=== PATIENT | male | born 1930 | race Caucasian/White ===

== ENCOUNTER 2022-05-25 20:02 | Inpatient (IN) | payer BC ==
[~2022-05-25] VITALS: Ht 170.2 cm; Wt 74.8 kg
--- NOTE | 2022-05-25 20:35 | NUR ---
seeing and examined by Dr. Carrizales
[2022-05-25] MEDS ORDERED: IV NORMAL SALINE 1000 ML BAG IV ONE (20:45)
[2022-05-25 20:54] LABS: HEMATOCRIT 40.9 % (36.7-47.1); MEAN CORPUSCULAR HEMOGLOBIN 26.2 uug (23.8-33.4); MEAN CORPUSCULAR VOLUME 81.5 fL (73.0-96.2); PLATELET COUNT (AUTO) 189 K/uL (152-348)
[2022-05-25 21:04] LABS: CARBON DIOXIDE 32 mmol/L (21-32); CHLORIDE 100 mmol/L (98-107); CREATININE 1.1 mg/dL (0.6-1.3); GLUCOSE 101 mg/dL (74-106); UREA NITROGEN, BLOOD 28 mg/dL (7-18)
--- NOTE | 2022-05-25 21:08 | NUR ---
u/a collectecd, sent to lab
[2022-05-25 21:09] LABS: MAGNESIUM 2.1 mg/dL (1.8-2.4)
--- NOTE | 2022-05-25 21:17 | NUR ---
EKG done, L AC 20g inserted
[2022-05-25 21:22] LABS: ALANINE AMINOTRANSFERASE 20 U/L (16-63); ALKALINE PHOSPHATASE 121 U/L (50-136); ASPARTATE AMINOTRANSFERASE 21 U/L (15-37); BILIRUBIN,DIRECT 0.1 mg/dL (0.0-0.2); BILIRUBIN,TOTAL 0.3 mg/dL (0.2-1.0); TOTAL PROTEIN, SERUM 6.4 g/dL (6.4-8.2)
[2022-05-25 21:50] LABS: *BILIRUBIN,URIN NEGATIVE (NEGATIVE); *BLOOD, URINE NEGATIVE (NEGATIVE); *CLARITY,URINE CLEAR (CLEAR); *COLOR,URINE YELLOW (YELLOW); *KETONES,URINE NEGATIVE (NEGATIVE); *UROBILINOGEN,URINE 0.2 E.U./dl (NORMAL); LEUKOCYTE ESTERASE ,URINE NEGATIVE (NEGATIVE); NITRITE, URINE NEGATIVE (NEGATIVE); UGLUCOSE NEGATIVE (NEGATIVE)
[2022-05-25] MEDS ORDERED: SWABABLE VALVE TRANSFER SET EA MC ONE (22:31)
[2022-05-25] MEDS ORDERED: IOHEXOL 350 100 ML INFUS..BTL ONE (22:31)
[2022-05-25] MEDS ORDERED: IV NORMAL SALINE 250 ML IV ONE (22:31)
[2022-05-25] MEDS ORDERED: VANCOMYCIN IV 1,000 MG in IV DEXTROSE 5% 250 ML IV ONE (23:45)
[2022-05-25] MEDS ORDERED: PIPERACILLIN SODIUM/TAZOBACTAM 4.5 G in IV DEXTROSE 5% 50 ML IV SCH (23:45)
[2022-05-25] MEDS ORDERED: LINA145C PO (23:59)
[2022-05-25] MEDS ORDERED: LOSA100T31 PO (23:59)
[2022-05-25] MEDS ORDERED: TIOT4MIS3 IH (23:59)
[2022-05-25] MEDS ORDERED: LANS30CA56 PO (23:59)
[2022-05-25] MEDS ORDERED: DEXA4TAB PO (23:59)
[2022-05-25] MEDS ORDERED: LEVE500T9 PO (23:59)
[2022-05-25] MEDS ORDERED: SIMV-49 PO (23:59)
[2022-05-26] MEDS ORDERED: VANCOMYCIN IV 200 ML ONE (00:10)
[2022-05-26] MEDS ORDERED: PIPERACILLIN/TAZO 4.5 GM VIAL IV ONE (00:10)
--- NOTE | 2022-05-26 01:44 | NUR ---
covid swab collected and sent to lab
[2022-05-26] MEDS ORDERED: ONDANSETRON 4 MG/2 ML VIAL IV PRN (01:45)
[2022-05-26] MEDS ORDERED: REMEDY ESSENTIAL ZINC PASTE 113 GM TP PRN (01:45)
[2022-05-26] MEDS ORDERED: DOSING BY PHARMACY-MD TO SPECIFY MED/ROUTE XX PRN (01:45)
--- NOTE | 2022-05-26 05:11 | NUR ---
Jud sun in [facility] - 05/26/22 at 0607 by ALTAGRACIA Called [facility] [place] spoke to [place], patient was assigned bed 141b.
--- NOTE | 2022-05-26 07:50 | NUR ---
Recieved pt in resting w/ both eyes closed, NAD noted remaines on o2 at 5L via N/C.
[2022-05-26] MEDS ORDERED: PANTOPRAZOLE SODIUM 40 MG TABLET.DR PO ONE (07:58)
[2022-05-26] MEDS: PANTOPRAZOLE SODIUM 40 MG TABLET.DR PO SCH ×2 (08:00→09:54)
--- NOTE | 2022-05-26 08:40 | NUR ---
Transfer pt via gurney to room 314.
--- NOTE | 2022-05-26 08:50 | NUR ---
PT RECEIVED IN ROOM 14, QI BED VIA [facility] AWAKE AND IS ON O2 5L/MINN NC. NO SOB. PT WALK FROM [facility]. GAIT IS UNSTEADY. PT ASSISTED BY ER NURSE AND THIS NURSE. PT TOLERATES ACTIVITY. PASTRY CHEF PLACED. VS NOTEDF IS WNL. AFEBRILE. PLEASE SEEE NURSES FLOE RECORD FOR V/S. LAC #[address] pT IS CONTINENT OF BLADDER. NO BM NOTED AT THIS TIME. kIN BRUISED THE RIGHT LEG AND R KNEE ARE. AND SCAB TO RIGHT ELBOW. REDNESS TO SACRUM. PT ORIENTED TO ROOM AND USE OF TV AND PHONE IN ROOM. PT VERBALIZES UNDERSTANDING.
[2022-05-26 09:05] VITALS: BP 138/66
[2022-05-26 09:05] LABS: HEMATOCRIT 39.9 % (36.7-47.1); MEAN CORPUSCULAR HEMOGLOBIN 25.8 uug (23.8-33.4); MEAN CORPUSCULAR VOLUME 81.4 fL (73.0-96.2); PLATELET COUNT (AUTO) 166 K/uL (152-348)
[2022-05-26 09:20] LABS: BILIRUBIN,TOTAL 0.4 mg/dL (0.2-1.0); CREATININE 1.1 mg/dL (0.6-1.3); MAGNESIUM 2.2 mg/dL (1.8-2.4); POTASSIUM 4.1 mmol/L (3.5-5.1); TOTAL PROTEIN, SERUM 6.4 g/dL (6.4-8.2)
[2022-05-26] MEDS: PIPERACILLIN SODIUM/TAZOBACTAM 3.375 G in IV DEXTROSE 5% 50 ML IV SCH ×3 (09:54→21:05)
[2022-05-26] MEDS: IV NS 1000 ML 1,000 ML IV PRN (09:56)
[2022-05-26 11:26] VITALS: BP 123/52
[2022-05-26 14:57] VITALS: BP 105/41
[2022-05-26] MEDS: levETIRAcetam 500 MG TABLET PO SCH ×2 (16:24→22:12)
[2022-05-26] MEDS: DEXAMETHASONE 4 MG TABLET PO SCH (16:25)
--- NOTE | 2022-05-26 18:36 | NUR ---
SEEN BY RESOURCE FORESTER. NPT OCCASION COUGHING IS PRDUCTIVE PT HAS PHLEM. SAFETY MAINTAINED. CALL LIGHT IS INREACH AND VERBALIZES UNDERXTANDING NOT TOGET OUT OF BED WITHOUT ASSISTANCE, SIDE RAILS UP X2, PRE PROTOCOL BED ALARM IN PLACE.
[2022-05-26 20:00] VITALS: BP 120/59
[2022-05-26] MEDS: SIMVASTATIN 40 MG TABLET PO SCH (21:12)
[2022-05-26] MEDS: ACETAMINOPHEN 325 MG TABLET PO PRN (21:13)
[2022-05-26] MEDS: VANCOMYCIN IV 1,000 MG in IV DEXTROSE 5% 250 ML IV SCH (21:59)
[2022-05-27] VITALS: BP 127/59
[2022-05-27] MEDS: PIPERACILLIN SODIUM/TAZOBACTAM 3.375 G in IV DEXTROSE 5% 50 ML IV SCH ×4 (02:50→21:58)
[2022-05-27 04:00] VITALS: BP 148/64
[2022-05-27 08:26] LABS: MEAN CORPUSCULAR HEMOGLOBIN 26.4 uug (23.8-33.4); MEAN CORPUSCULAR VOLUME 81.2 fL (73.0-96.2); PLATELET COUNT (AUTO) 210 K/uL (152-348)
[2022-05-27 08:37] LABS: MAGNESIUM 2.1 mg/dL (1.8-2.4); PHOSPHOROUS 3.3 mg/dL (2.5-4.9); POTASSIUM 3.9 mmol/L (3.5-5.1)
[2022-05-27 08:49] LABS: THYROID STIMULATING HORMONE 1.234 mIU/mL (0.358-3.740)
[2022-05-27] MEDS ORDERED: Linaclotide (Linzess) 145 MCG) PO SCH (09:00)
[2022-05-27] MEDS ORDERED: Medication Not On Formulary EA (Losartan Potassium 100 MG) PO SCH (09:00)
[2022-05-27 09:23] LABS: ABG BASE EXCESS 3.1 mmol/L; ABG HCO3 26.4 mmol/L; ABG PCO2 36.2 mmHg (35.0-45.0); ABG PH 7.481 (7.350-7.450); ABG PO2 61.6 mmHg (75.0-100.0); ABG SITE RIGHT RADIAL; ABG TOTAL HEMOGLOBIN 13.4 G/dL (13.5-18.0); COHb 1.4 % (0.5-1.5); MetHb 0.3 % (0.0-1.5); O2Hb 90.3 % (94.0-97.0); VENT MODE Nasal Cannula
[2022-05-27] MEDS: LOSARTAN POTASSIUM 50 MG TABLET PO SCH (10:02)
[2022-05-27] MEDS: levETIRAcetam 500 MG TABLET PO SCH ×2 (10:02→21:58)
[2022-05-27] MEDS: DEXAMETHASONE 4 MG TABLET PO SCH ×2 (10:02→16:11)
[2022-05-27 12:00] VITALS: BP 117/63
[2022-05-27] MEDS ORDERED: LORAZEPAM 2 MG/1 ML VIAL IV PRN (12:30)
--- NOTE | 2022-05-27 13:40 | NUR ---
TRANSPORTED TO [facility] FOR MRI OF THE BRAIN
[2022-05-27 16:00] VITALS: BP 134/77
[2022-05-27] MEDS: VANCOMYCIN IV 1,000 MG in IV DEXTROSE 5% 250 ML IV SCH (17:59)
[2022-05-27 20:00] VITALS: BP 127/74
[2022-05-27] MEDS: SIMVASTATIN 40 MG TABLET PO SCH (21:58)
[2022-05-28] VITALS: BP 125/68
[2022-05-28 04:00] VITALS: BP 133/76
[2022-05-28] MEDS: PANTOPRAZOLE SODIUM 40 MG TABLET.DR PO SCH (06:22)
[2022-05-28 06:44] LABS: HEMATOCRIT 36.3 % (36.7-47.1); MEAN CORPUSCULAR HEMOGLOBIN 26.1 uug (23.8-33.4); MEAN CORPUSCULAR VOLUME 80.4 fL (73.0-96.2); PLATELET COUNT (AUTO) 212 K/uL (152-348)
[2022-05-28 07:31] LABS: BILIRUBIN,TOTAL 0.4 mg/dL (0.2-1.0); CREATININE 0.8 mg/dL (0.6-1.3); MAGNESIUM 2.1 mg/dL (1.8-2.4); POTASSIUM 3.7 mmol/L (3.5-5.1)
[2022-05-28] MEDS: levETIRAcetam 500 MG TABLET PO SCH ×2 (08:21→20:40)
[2022-05-28] MEDS: DEXAMETHASONE 4 MG TABLET PO SCH ×2 (08:21→16:17)
[2022-05-28] MEDS: LOSARTAN POTASSIUM 50 MG TABLET PO SCH (08:21)
[2022-05-28 12:00] VITALS: BP 132/63
--- NOTE | 2022-05-28 15:56 | NUR ---
Pt. noted to be stable through out the shift. Able to make the need known. No acute distress noted. Call light within reach. bowel soft and non tender. No c/o pain. No acute distress noted. will keep monitoring the pt.
[2022-05-28 16:00] VITALS: BP 121/67
[2022-05-28] MEDS: MAGNESIUM HYDROXIDE 30 ML LIQUID UDC PO PRN (18:20)
--- NOTE | 2022-05-28 19:35 | NUR ---
Received patient laying in bed comfortably. AAOx4. No signs of distress or c/o pain at this time. On 2L NC, titrate as needed for comfort. Is SR on tele monitor, HR 83. Left FA IV site is intact and patent. IV fluids running adequately, NS@75cc/hr. Safety and comfort measures enforced.
[2022-05-28 20:00] VITALS: BP 123/62
[2022-05-28] MEDS: SIMVASTATIN 20 MG TABLET PO SCH (20:40)
[2022-05-29] VITALS: BP 128/71
[2022-05-29] MEDS: IV NS 1000 ML 1,000 ML IV PRN (03:10)
[2022-05-29 04:00] VITALS: BP 149/75
[2022-05-29] MEDS: PANTOPRAZOLE SODIUM 40 MG TABLET.DR PO SCH (06:06)
[2022-05-29] MEDS: MAGNESIUM HYDROXIDE 30 ML LIQUID UDC PO PRN (06:06)
--- NOTE | 2022-05-29 06:47 | NUR ---
Pateint slept intermittently throughout the night. Medical records release form consent was signed and to be sent to Dr. Carlos Barr. Patient is aware of situation. Complained of not being able to have a bowel movement. Abdomen was non-tender, soft, hyperactive. Milk of Mag was administered. IVF running adequately. Is in no signs of distress. Is now on 3L NC. Is SR on tele monitor, HR 85. Safety and comfort measures maintained.
[2022-05-29 08:06] LABS: *IMMUNOGLOBULIN G, SERUM 676 mg/dL (603-1613); IMMUNOGLOBULIN M, SERUM 40 mg/dL (15-143)
[2022-05-29 08:11] LABS: CREATININE 0.8 mg/dL (0.6-1.3); POTASSIUM 4.1 mmol/L (3.5-5.1)
[2022-05-29] MEDS: LOSARTAN POTASSIUM 50 MG TABLET PO SCH (08:15)
[2022-05-29] MEDS: DEXAMETHASONE 4 MG TABLET PO SCH ×2 (08:15→16:30)
[2022-05-29] MEDS: levETIRAcetam 500 MG TABLET PO SCH ×2 (08:15→20:46)
[2022-05-29 08:43] LABS: HEMATOCRIT 36.8 % (36.7-47.1); MEAN CORPUSCULAR VOLUME 80.5 fL (73.0-96.2); PLATELET COUNT (AUTO) 209 K/uL (152-348)
[2022-05-29 11:36] VITALS: BP 121/64
[2022-05-29 13:04] LABS: BAND % (MANUAL) 2 % (0-10); LYMPHOCYTES % (MANUAL) 4 % (20-40); MONOCYTES % (MANUAL) 2 % (2-10); NEUTROPHILS % (MANUAL) 92 % (42-75)
[2022-05-29] MEDS ORDERED: FERROUS SULFATE 325 MG TABEC PO SCH (14:00)
[2022-05-29 16:48] VITALS: BP 119/67
[2022-05-29 20:00] VITALS: BP 142/59
[2022-05-29] MEDS: SIMVASTATIN 20 MG TABLET PO SCH (20:46)
[2022-05-30] VITALS: BP 151/69
[2022-05-30 04:00] VITALS: BP 143/66
--- NOTE | 2022-05-30 05:32 | NUR ---
Patient is SR on tele monitor, HR 92.
[2022-05-30] MEDS: PANTOPRAZOLE SODIUM 40 MG TABLET.DR PO SCH (06:28)
--- NOTE | 2022-05-30 06:50 | NUR ---
Patient slept intermittently throughout the night. Completed new linen change and hygiene. Patient stated " I feel a lot better." No signs of distress or c/o pain. Is on 3L NC. BMx1 throughout shift. Safety and comfort measures maintained.
[2022-05-30 07:54] LABS: HEMATOCRIT 37.4 % (36.7-47.1); MEAN CORPUSCULAR HEMOGLOBIN 26.5 uug (23.8-33.4); MEAN CORPUSCULAR VOLUME 80.3 fL (73.0-96.2); PLATELET COUNT (AUTO) 229 K/uL (152-348)
[2022-05-30 08:05] LABS: CREATININE 0.9 mg/dL (0.6-1.3); POTASSIUM 4.3 mmol/L (3.5-5.1)
[2022-05-30] MEDS: DEXAMETHASONE 4 MG TABLET PO SCH ×2 (08:08→16:11)
[2022-05-30] MEDS: LOSARTAN POTASSIUM 50 MG TABLET PO SCH (08:08)
[2022-05-30] MEDS: levETIRAcetam 500 MG TABLET PO SCH ×2 (08:08→20:03)
[2022-05-30] MEDS: FERROUS SULFATE 325 MG TABEC PO SCH (08:18)
[2022-05-30] MEDS ORDERED: GADOTERATE MEGLUMINE 10 MMOL/20 ML VIAL IV ONE (08:51)
[2022-05-30 11:32] VITALS: BP 129/42
[2022-05-30 16:06] LABS: A/G RATIO 0.8 (0.7-1.7); ALBUMIN 2.2 g/dL (2.9-4.4); ALPHA-1-GLOBULIN 0.4 g/dL (0.0-0.4); ALPHA-2-GLOBULIN 0.8 g/dL (0.4-1.0); GAMMA GLOBULIN 0.6 g/dL (0.4-1.8); GLOBULIN, TOTAL 2.8 g/dL (2.2-3.9); M-SPIKE Not Observed g/dL (Not Observed)
[2022-05-30 16:34] VITALS: BP 108/57
[2022-05-30 19:48] VITALS: BP 106/57
[2022-05-30] MEDS: SIMVASTATIN 20 MG TABLET PO SCH (20:03)
[2022-05-31 05:02] VITALS: BP 145/69
[2022-05-31] MEDS: PANTOPRAZOLE SODIUM 40 MG TABLET.DR PO SCH (06:03)
[2022-05-31 07:45] LABS: HEMATOCRIT 41.7 % (36.7-47.1); MEAN CORPUSCULAR VOLUME 80.4 fL (73.0-96.2); PLATELET COUNT (AUTO) 224 K/uL (152-348)
[2022-05-31 08:33] LABS: BILIRUBIN,TOTAL 0.4 mg/dL (0.2-1.0); CREATININE 0.9 mg/dL (0.6-1.3); MAGNESIUM 2.3 mg/dL (1.8-2.4); PHOSPHOROUS 3.3 mg/dL (2.5-4.9); POTASSIUM 4.4 mmol/L (3.5-5.1); TOTAL PROTEIN, SERUM 6.8 g/dL (6.4-8.2)
--- NOTE | 2022-05-31 09:00 | NUR ---
PT COMPLAIN OF SOB; SATURATION IN THE 80-85; SWITCHED 4L/MIN NC TO FACE MASK 9L/MIN. MD AWARE. NO NEW ORDERS.
[2022-05-31] MEDS: DEXAMETHASONE 4 MG TABLET PO SCH ×2 (09:15→18:21)
[2022-05-31] MEDS: FERROUS SULFATE 325 MG TABEC PO SCH (09:15)
[2022-05-31] MEDS: levETIRAcetam 500 MG TABLET PO SCH ×2 (09:16→23:07)
[2022-05-31] MEDS: LOSARTAN POTASSIUM 50 MG TABLET PO SCH (09:16)
[2022-05-31] MEDS: ALBUTEROL SULFATE 2.5 MG/3 ML NEBU NEB PRN (09:44)
[2022-05-31 11:47] VITALS: BP 112/53
--- NOTE | 2022-05-31 13:43 | NUR ---
pt calm and relax on bed sleeping. switch face mask to nc 4l/min. pt saturation 97%.
[2022-05-31] MEDS: ENSURE ENLIVE (VAN) 240 ML LIQUID PO SCH (14:00)
[2022-05-31 15:54] VITALS: BP 91/52
--- NOTE | 2022-05-31 18:23 | NUR ---
pt was discharge. pt is hemodynamically stable. no acute distress noted. pt is ambulatory. mariscal cath was inserted w/ a leg bag prior dc for urine retention per md. educate pt with catheter care and bag draining, pt verbalized understanding. pt will go home with spouse via private car. all belonging accounted for. iv access removed. Addendum: 05/31/22 at 1829 by GEOFF BURT RN wrong patient
[2022-05-31 20:57] VITALS: BP 91/51
[2022-05-31] MEDS: SIMVASTATIN 20 MG TABLET PO SCH (23:07)
[2022-06-01] MEDS: ACETAMINOPHEN 325 MG TABLET PO PRN ×2 (00:20→20:09)
[2022-06-01 00:26] VITALS: BP 100/54
[2022-06-01] MEDS: LORAZEPAM 2 MG/1 ML VIAL IV PRN ×2 (02:22→20:09)
[2022-06-01 05:10] VITALS: BP 109/66
[2022-06-01 06:57] LABS: HEMATOCRIT 38.8 % (36.7-47.1); MEAN CORPUSCULAR VOLUME 80.2 fL (73.0-96.2); PLATELET COUNT (AUTO) 195 K/uL (152-348)
[2022-06-01] MEDS: PANTOPRAZOLE SODIUM 40 MG TABLET.DR PO SCH (07:01)
[2022-06-01 07:13] LABS: CREATININE 0.9 mg/dL (0.6-1.3); POTASSIUM 4.3 mmol/L (3.5-5.1)
[2022-06-01] MEDS: LOSARTAN POTASSIUM 50 MG TABLET PO SCH (09:42)
[2022-06-01] MEDS: levETIRAcetam 500 MG TABLET PO SCH ×2 (09:42→20:08)
[2022-06-01] MEDS: FERROUS SULFATE 325 MG TABEC PO SCH (09:42)
[2022-06-01] MEDS: DEXAMETHASONE 4 MG TABLET PO SCH ×2 (09:42→18:39)
[2022-06-01] MEDS: ENSURE ENLIVE (VAN) 240 ML LIQUID PO SCH (09:43)
[2022-06-01 12:00] VITALS: BP 137/82
[2022-06-01 16:10] VITALS: BP 116/65
[2022-06-01 20:00] VITALS: BP 129/76
[2022-06-01] MEDS: SIMVASTATIN 20 MG TABLET PO SCH (20:09)
--- NOTE | 2022-06-01 23:27 | NUR ---
Patient has been a little bit agitated at the beginning of the shift. Antianxiety medication have been administered. Patient is now resting in his bed, no sign of respiratory distress observed. Patient took all of his medications. Report have been giving to the nurse who is going to take care of the patient while I am leaving the premise. Patient is now stable 02 is at normal range.
[2022-06-02 04:00] VITALS: BP 118/78
[2022-06-02] MEDS: PANTOPRAZOLE SODIUM 40 MG TABLET.DR PO SCH (06:21)
[2022-06-02] MEDS: DEXAMETHASONE 4 MG TABLET PO SCH ×2 (08:29→17:58)
[2022-06-02] MEDS: levETIRAcetam 500 MG TABLET PO SCH ×2 (08:29→21:00)
[2022-06-02] MEDS: LOSARTAN POTASSIUM 50 MG TABLET PO SCH (08:29)
[2022-06-02] MEDS: FERROUS SULFATE 325 MG TABEC PO SCH (08:29)
[2022-06-02] MEDS: ENSURE ENLIVE (VAN) 240 ML LIQUID PO SCH (08:30)
[2022-06-02 11:30] VITALS: BP 90/46
--- NOTE | 2022-06-02 11:33 | NUR ---
pt still in the unit. per CM there no placment for him yet. made aware..
--- NOTE | 2022-06-02 11:34 | NUR ---
pt is more alert today. pt ate 80% of his bfast. still dessating without O2. pt is on 10L simple face mask.
[2022-06-02 15:46] VITALS: BP 115/59
--- NOTE | 2022-06-02 18:40 | NUR ---
SHIFT NOTE. PT IS MORE ALERT TODAY. TOLERATED ENSURE. STILL DESAT WHEN OFF O2. PT IS ON 10L FACE MASK SATURATING AT 94-95. AFEBRILE. NO COMPLAIN OF PAIN. Q2H REPOSITION DONE. ON CONTINUOUS PULSE OX MONITOR. PT IS ABLE TO SIT ON BED BUT SATURATION DROP PER PT. MD IS AWARE. CALL LIGHT IN REACH. SAFETY MEASURE MAINTAINED. F/U WITH CM FOR DC PLAN. WILL ENDORSED TO NOC SHIFT.
[2022-06-02 20:00] VITALS: BP 102/57
[2022-06-02] MEDS: SIMVASTATIN 20 MG TABLET PO SCH (21:00)
[2022-06-02] MEDS: LORAZEPAM 2 MG/1 ML VIAL IV PRN (23:15)
[2022-06-03 00:30] VITALS: BP 106/68
--- NOTE | 2022-06-03 00:30 | NUR ---
PATIENT ASLEEP IN BED. CONTINUED WITH SIMPLE MASK ON 10L NC SATING 93-95%. NO RESP. DISTRESS NOTED.
[2022-06-03 03:32] LABS: *OCCULT BLOOD STOOL NEGATIVE (NEGATIVE)
[2022-06-03] MEDS: PANTOPRAZOLE SODIUM 40 MG TABLET.DR PO SCH (06:02)
[2022-06-03 07:18] LABS: HEMATOCRIT 39.1 % (36.7-47.1); MEAN CORPUSCULAR HEMOGLOBIN 25.8 uug (23.8-33.4); MEAN CORPUSCULAR VOLUME 81.4 fL (73.0-96.2); PLATELET COUNT (AUTO) 160 K/uL (152-348)
[2022-06-03 07:41] LABS: CREATININE 1.2 mg/dL (0.6-1.3); MAGNESIUM 2.6 mg/dL (1.8-2.4); PHOSPHOROUS 3.7 mg/dL (2.5-4.9); POTASSIUM 4.5 mmol/L (3.5-5.1)
[2022-06-03] MEDS: ENSURE ENLIVE (VAN) 240 ML LIQUID PO SCH (09:00)
[2022-06-03] MEDS: LOSARTAN POTASSIUM 50 MG TABLET PO SCH (09:00)
[2022-06-03] MEDS: FERROUS SULFATE 325 MG TABEC PO SCH (10:13)
[2022-06-03] MEDS: levETIRAcetam 500 MG TABLET PO SCH ×2 (10:13→21:08)
[2022-06-03] MEDS: DEXAMETHASONE 4 MG TABLET PO SCH ×2 (10:13→17:54)
--- NOTE | 2022-06-03 10:15 | NUR ---
Blood pressure reading is 107/37 cozaar 100mg held for low blood pressure.
[2022-06-03 11:48] VITALS: BP 94/47
[2022-06-03 15:52] VITALS: BP 117/49
[2022-06-03 16:06] LABS: BETA-2 MICROGLOBULIN, SERUM 3.5 mg/L (0.6-2.4)
[2022-06-03 20:56] VITALS: BP 112/57
[2022-06-03] MEDS: LORAZEPAM 2 MG/1 ML VIAL IV PRN (21:08)
[2022-06-03] MEDS: SIMVASTATIN 20 MG TABLET PO SCH (21:08)
--- NOTE | 2022-06-04 00:35 | NUR ---
Patient is confused and agitated, trying to remove O2. Bilateral soft wrist restraint applied. Slept intermittently. Vital signs WNL.
[2022-06-04 00:42] VITALS: BP 133/69
[2022-06-04] MEDS: LORAZEPAM 2 MG/1 ML VIAL IV PRN (03:08)
[2022-06-04 04:55] VITALS: BP 128/63
[2022-06-04] MEDS: PANTOPRAZOLE SODIUM 40 MG TABLET.DR PO SCH (06:46)
[2022-06-04 07:31] LABS: HEMATOCRIT 39.7 % (36.7-47.1); MEAN CORPUSCULAR HEMOGLOBIN 26.1 uug (23.8-33.4); MEAN CORPUSCULAR VOLUME 81.2 fL (73.0-96.2); PLATELET COUNT (AUTO) 147 K/uL (152-348)
[2022-06-04 07:41] LABS: CREATININE 0.9 mg/dL (0.6-1.3); MAGNESIUM 2.4 mg/dL (1.8-2.4); PHOSPHOROUS 3.5 mg/dL (2.5-4.9); POTASSIUM 4.5 mmol/L (3.5-5.1)
[2022-06-04] MEDS: DEXAMETHASONE 4 MG TABLET PO SCH ×2 (09:23→16:34)
[2022-06-04] MEDS: FERROUS SULFATE 325 MG TABEC PO SCH (09:23)
[2022-06-04] MEDS: LOSARTAN POTASSIUM 50 MG TABLET PO SCH (09:23)
[2022-06-04] MEDS: levETIRAcetam 500 MG TABLET PO SCH ×2 (09:23→20:59)
[2022-06-04] MEDS: ENSURE ENLIVE (VAN) 240 ML LIQUID PO SCH ×2 (09:23→16:35)
[2022-06-04 11:25] VITALS: BP 150/66
[2022-06-04 15:44] VITALS: BP 110/59
[2022-06-04 20:09] VITALS: BP 101/59
[2022-06-04] MEDS: SIMVASTATIN 20 MG TABLET PO SCH (20:59)
[2022-06-05 00:26] VITALS: BP 106/53
[2022-06-05 04:43] VITALS: BP 110/61
[2022-06-05] MEDS: PANTOPRAZOLE SODIUM 40 MG TABLET.DR PO SCH (06:29)
[2022-06-05 07:12] LABS: HEMATOCRIT 40.3 % (36.7-47.1); MEAN CORPUSCULAR HEMOGLOBIN 26.1 uug (23.8-33.4); MEAN CORPUSCULAR VOLUME 81.5 fL (73.0-96.2); PLATELET COUNT (AUTO) 155 K/uL (152-348)
[2022-06-05 07:42] LABS: CREATININE 0.8 mg/dL (0.6-1.3); MAGNESIUM 2.6 mg/dL (1.8-2.4); PHOSPHOROUS 3.3 mg/dL (2.5-4.9); POTASSIUM 4.8 mmol/L (3.5-5.1)
[2022-06-05 08:28] VITALS: BP 128/64
[2022-06-05] MEDS: DEXAMETHASONE 4 MG TABLET PO SCH ×2 (08:46→16:47)
[2022-06-05] MEDS: levETIRAcetam 500 MG TABLET PO SCH ×2 (08:47→20:55)
[2022-06-05] MEDS: FERROUS SULFATE 325 MG TABEC PO SCH (08:47)
[2022-06-05] MEDS: LOSARTAN POTASSIUM 50 MG TABLET PO SCH (08:47)
[2022-06-05] MEDS: ENSURE ENLIVE (VAN) 240 ML LIQUID PO SCH ×2 (08:48→16:47)
[2022-06-05] MEDS: IV D5/ 0.9% NACL 1,000 ML IV PRN (11:00)
[2022-06-05 11:32] VITALS: BP 105/54
[2022-06-05] MEDS ORDERED: IV NORMAL SALINE 250 ML IV ONE (12:22)
[2022-06-05] MEDS ORDERED: IOHEXOL 300MG/ML 100 ML INFUS..BTL ONE (12:22)
[2022-06-05] MEDS ORDERED: SWABABLE VALVE TRANSFER SET EA MC ONE (12:22)
[2022-06-05 15:18] VITALS: BP 122/74
--- NOTE | 2022-06-05 18:33 | NUR ---
brittny note; pt still confused at time. still desatting when off O2; md is aware; tolerating drinking ensure; swallow eval order per dr. kay. restarint on in the after noon pt taking his face mask off; pt on 8L simple face mask saturating 95-97%; redness on sacrum noted; apply optiform for protection; still sinus tachy on tele. ct head done today md notified of result. f/u w/ cm for discharge plan.
[2022-06-05 20:00] VITALS: BP 101/50
[2022-06-05] MEDS: LORAZEPAM 2 MG/1 ML VIAL IV PRN ×2 (20:55)
[2022-06-05] MEDS: SIMVASTATIN 20 MG TABLET PO SCH (20:55)
[2022-06-05] MEDS: IPRATROPIUM BROMIDE 0.5 MG/2.5 ML NEBU NEB PRN (23:09)
[2022-06-05] MEDS: ALBUTEROL SULFATE 2.5 MG/3 ML NEBU NEB PRN (23:09)
[2022-06-06] VITALS: BP 108/54
[2022-06-06 04:00] VITALS: BP 107/48
[2022-06-06] MEDS: PANTOPRAZOLE SODIUM 40 MG TABLET.DR PO SCH (07:09)
--- NOTE | 2022-06-06 07:13 | NUR ---
SHIFT NOTE: RECEIVED PATIENT WITH FAMILY MEMBER AT BEDSIDE NO SIGNS OF DISTRESS NOTED. PT IS CONFUSED KEPT PULLING OFF OXYGEN AND WHEN MANAGER ELECTRONIC ATTEMPTING TO CHANGE PT PT PULLED OFF Addendum: 06/06/22 at 0747 by REGISTRY [facility] INPATIENT RN21 RN PT PULLED OFF MASK AND RT STARTED PT ON A NONREBREATHER MASK AND OXYGEN IS NOW 97 PERCENT. NURSE IS SITTING BY PATIENT ROOM. PT HAS BILATERAL WRIST RESTRAINTS WRISTS MASSAGE AND RESTRAINTS REAPPLIED TOLERATED WELL NO SIGNS OF REDNESS OR SKIN BREAKDOWN. WILL ENDORSE TO DAHLIA MARTINEZ.
[2022-06-06 08:26] LABS: HEMATOCRIT 38.5 % (36.7-47.1); MEAN CORPUSCULAR HEMOGLOBIN 25.8 uug (23.8-33.4); MEAN CORPUSCULAR VOLUME 81.5 fL (73.0-96.2); PLATELET COUNT (AUTO) 131 K/uL (152-348)
[2022-06-06] MEDS: DEXAMETHASONE 4 MG TABLET PO SCH ×2 (08:55→17:19)
[2022-06-06] MEDS: levETIRAcetam 500 MG TABLET PO SCH ×2 (08:55→21:13)
[2022-06-06] MEDS: FERROUS SULFATE 325 MG TABEC PO SCH (08:56)
[2022-06-06] MEDS: LOSARTAN POTASSIUM 50 MG TABLET PO SCH (08:56)
[2022-06-06] MEDS: ENSURE ENLIVE (VAN) 240 ML LIQUID PO SCH ×2 (08:56→17:19)
[2022-06-06 09:00] VITALS: BP 103/63
[2022-06-06 09:08] LABS: CREATININE 0.9 mg/dL (0.6-1.3); MAGNESIUM 2.4 mg/dL (1.8-2.4); PHOSPHOROUS 3.5 mg/dL (2.5-4.9); POTASSIUM 4.5 mmol/L (3.5-5.1)
[2022-06-06] MEDS: IV D5/ 0.9% NACL 1,000 ML IV PRN (10:00)
--- NOTE | 2022-06-06 10:32 | NUR ---
titrate pt O2 to 6L simple mask, pt saturating 97-98. pt realx and resting on bed. no agitation noted.
[2022-06-06 11:54] VITALS: BP 93/51
[2022-06-06 16:51] VITALS: BP 106/54
--- NOTE | 2022-06-06 17:39 | NUR ---
shift note; pt aox2-3 on bed rest. no acute distress noted. denies any pain. daughter veda spoke with 's. verbalized understanding of POC of her dad. Pt on 6L simple mask saturating 97-98 all day. still desatting when off o2. pt is on pureed diet per speech therapy. pt is on aspiration risk precaution. soft wrist restraint still in placed pt taking his oxygen off. IV hydration still running at 75cc/hr. applied optiform on sacrum for protection.oral care done. pt have sore in gums from wearing dentures. per CM pt is going to [facility] just waiting for AUTH. call light in bedside; safety measure in placed. will endorsed to noc shift.
[2022-06-06] MEDS: MAGNESIUM HYDROXIDE 30 ML LIQUID UDC PO PRN (18:16)
--- NOTE | 2022-06-06 19:30 | NUR ---
Received patient lying in bed. AAOx2-3. In no acute distress. On O2 at 6LPM via simple mask in place. O2 sat at 98%. On continuous pulse ox. NSR on tele with HR of 100/min. IV site on right hand intact and patent. Sami. wrist restraint in place. Circulation checked. Needs assessed and attended to. Safety measure initiated.
[2022-06-06 20:43] VITALS: BP_SYST 146; BP_SYST 98; BP_DIAS 52; BP_DIAS 83
[2022-06-06] MEDS: SIMVASTATIN 20 MG TABLET PO SCH (21:13)
[2022-06-07] MEDS: LORAZEPAM 2 MG/1 ML VIAL IV PRN (00:19)
[2022-06-07 00:28] VITALS: BP 129/62
[2022-06-07] MEDS: IV D5/ 0.9% NACL 1,000 ML IV PRN ×2 (01:22→22:16)
[2022-06-07 04:46] VITALS: BP 129/66
--- NOTE | 2022-06-07 05:52 | NUR ---
AAOx2-3 with some confusion. In no apparent distress. On O2 at 6LPM via simple mask in place. NSR on tele with HR of 82/min. IV site on right hand intact and patent. IVF infusing. Sami. wrist restraint in place. Circulation checked. Needs attended to and met. Safety measure maintained.
[2022-06-07] MEDS: PANTOPRAZOLE SODIUM 40 MG TABLET.DR PO SCH (06:10)
--- NOTE | 2022-06-07 08:00 | NUR ---
PT is in no acute distress. O2 @ 8 lit mask with continuous pulse ox sat of 95%. Checked pt's skin with wrist restraint no redness noted. Repositioned pt for comfort. Call light is within reach. aspiration precaution implemented. Call light is within reach.
[2022-06-07 08:18] LABS: HEMATOCRIT 37.4 % (36.7-47.1); MEAN CORPUSCULAR HEMOGLOBIN 26.1 uug (23.8-33.4); MEAN CORPUSCULAR VOLUME 81.2 fL (73.0-96.2); PLATELET COUNT (AUTO) 140 K/uL (152-348)
[2022-06-07 08:37] LABS: CREATININE 0.8 mg/dL (0.6-1.3); MAGNESIUM 2.5 mg/dL (1.8-2.4); PHOSPHOROUS 2.4 mg/dL (2.5-4.9); POTASSIUM 4.6 mmol/L (3.5-5.1)
[2022-06-07] MEDS: DEXAMETHASONE 4 MG TABLET PO SCH ×2 (09:05→16:40)
[2022-06-07] MEDS: LOSARTAN POTASSIUM 50 MG TABLET PO SCH (09:06)
[2022-06-07] MEDS: ENSURE ENLIVE (VAN) 240 ML LIQUID PO SCH ×2 (09:06→17:02)
[2022-06-07] MEDS: levETIRAcetam 500 MG TABLET PO SCH ×2 (09:06→20:25)
[2022-06-07] MEDS: FERROUS SULFATE 325 MG TABEC PO SCH (09:06)
[2022-06-07] MEDS: MODAFINIL 100 MG TABLET PO SCH (09:06)
[2022-06-07 11:43] VITALS: BP 105/53
[2022-06-07 16:24] VITALS: BP 107/54
[2022-06-07] MEDS ORDERED: NEUTRA PHOS PACKET PO ONE (16:30)
--- NOTE | 2022-06-07 17:57 | NUR ---
Sacral redness Mepilex applied. Pt alert and oriented x 3. Aspiration precaution effective. Thickened liquids effective. Pt denies any c/o pain.
--- NOTE | 2022-06-07 20:00 | NUR ---
Received patient lying in bed. AAOx2-3. In no apparent distress. On O2 at 8LPM via simple mask in place. O2 sat at 96%. HOB kept elevated. NSR on tele with HR of 90/min. IV site on right hand intact and patent. Sami. wrist restraint in place. Safety measure initiated. Continue to monitor.
[2022-06-07] MEDS: MELATONIN 3 MG TABLET PO SCH (20:25)
[2022-06-07] MEDS: SIMVASTATIN 20 MG TABLET PO SCH (20:25)
[2022-06-07 20:40] VITALS: BP 122/60
[2022-06-08 00:32] VITALS: BP 124/63
[2022-06-08] MEDS: LORAZEPAM 2 MG/1 ML VIAL IV PRN (03:26)
[2022-06-08 04:50] VITALS: BP 120/66
[2022-06-08] MEDS: ALBUTEROL SULFATE 2.5 MG/3 ML NEBU NEB PRN (05:21)
[2022-06-08] MEDS: IPRATROPIUM BROMIDE 0.5 MG/2.5 ML NEBU NEB PRN (05:21)
--- NOTE | 2022-06-08 05:59 | NUR ---
On O2 at 8LPM via simple mask in place. Patient desaturate when mask is remove shortly. Still tries to remove mask in spite of having bilateral wrist restraint. Ativan 1mg via IV given for anxiety. Breathing TX given by RT PRN. Sinus tachy on tele with HR of 117/min. IV site on right hand intact and patent. IVF infusing. Needs attended to and met. Safety measure maintained.
[2022-06-08] MEDS: PANTOPRAZOLE SODIUM 40 MG TABLET.DR PO SCH (06:25)
[2022-06-08 07:22] LABS: HEMATOCRIT 40.5 % (36.7-47.1); MEAN CORPUSCULAR HEMOGLOBIN 25.6 uug (23.8-33.4); MEAN CORPUSCULAR VOLUME 82.3 fL (73.0-96.2); PLATELET COUNT (AUTO) 166 K/uL (152-348)
[2022-06-08 07:39] LABS: MAGNESIUM 2.3 mg/dL (1.8-2.4); POTASSIUM 4.1 mmol/L (3.5-5.1)
--- NOTE | 2022-06-08 08:00 | NUR ---
awake and restless, on 10l/mask but sat between 88%-90%, ST 120's, repositioned and kept head of bed elevated, oriented x 2, soft wrist restraints bilateral on, pt takes off 02 and pulls out IV if not on restraints, checked for circulation, aspiration and fall precautions implemented
[2022-06-08] MEDS: ENSURE ENLIVE (VAN) 240 ML LIQUID PO SCH ×2 (09:00→17:09)
[2022-06-08] MEDS: LOSARTAN POTASSIUM 50 MG TABLET PO SCH (09:00)
--- NOTE | 2022-06-08 09:00 | NUR ---
seen by Dr Clemente
[2022-06-08] MEDS: MODAFINIL 100 MG TABLET PO SCH (09:07)
[2022-06-08] MEDS: levETIRAcetam 250 MG TABLET PO SCH (09:07)
[2022-06-08] MEDS: DEXAMETHASONE 4 MG TABLET PO SCH ×2 (09:08→17:09)
[2022-06-08] MEDS: FERROUS SULFATE 325 MG TABEC PO SCH (09:08)
[2022-06-08 11:37] VITALS: BP 105/54
--- NOTE | 2022-06-08 12:00 | NUR ---
seen by hospitalist, pt relax at this time on 10l/nrb with sat of 94-95%, no distress noted,
[2022-06-08] MEDS: IV D5/ 0.9% NACL 1,000 ML IV PRN (12:05)
[2022-06-08 16:30] VITALS: BP 105/59
--- NOTE | 2022-06-08 18:36 | NUR ---
remains on 10L per NRB- sat 96%, no distress noted, repositioned q 2h with pillows for support-bilateral soft restrains on, good circulation noted, fed with meals and aspiration precautions observed, all needs attended and met.
[2022-06-08 20:00] VITALS: BP 129/67
[2022-06-08] MEDS: levETIRAcetam 500 MG TABLET PO SCH (20:45)
[2022-06-08] MEDS: QUETIAPINE FUMARATE 25 MG TABLET PO PRN (20:45)
[2022-06-08] MEDS: MELATONIN 3 MG TABLET PO SCH (20:45)
[2022-06-08] MEDS: SIMVASTATIN 20 MG TABLET PO SCH (20:45)
[2022-06-09] VITALS: BP 138/79
[2022-06-09] MEDS: IV D5/ 0.9% NACL 1,000 ML IV PRN ×2 (02:22→15:33)
[2022-06-09] MEDS: LORAZEPAM 2 MG/1 ML VIAL IV PRN (02:47)
[2022-06-09 04:00] VITALS: BP 134/66
[2022-06-09] MEDS: PANTOPRAZOLE SODIUM 40 MG TABLET.DR PO SCH (06:13)
[2022-06-09 07:11] LABS: HEMATOCRIT 36.1 % (36.7-47.1); MEAN CORPUSCULAR HEMOGLOBIN 25.8 uug (23.8-33.4); MEAN CORPUSCULAR VOLUME 81.4 fL (73.0-96.2); PLATELET COUNT (AUTO) 121 K/uL (152-348)
[2022-06-09 07:26] LABS: CREATININE 0.9 mg/dL (0.6-1.3); MAGNESIUM 2.2 mg/dL (1.8-2.4); PHOSPHOROUS 3.3 mg/dL (2.5-4.9); POTASSIUM 3.8 mmol/L (3.5-5.1)
--- NOTE | 2022-06-09 07:48 | NUR ---
Sleeping, appears comfortable. Trach to vent AC 12, TV 500, FIO2 30%, PEEP 5; with O2 sat 95%. Tele SR 66. GT feedings off. Addendum: 06/09/22 at 0755 by VALENCIA COELLO RN Notes not for this patient
--- NOTE | 2022-06-09 07:56 | NUR ---
Sleeping, calm. O2 per NRB at 14L with O2 sat of 94%. Tele SR with PVC. IVF infusing. Bilateral soft wrist restraints on, will monitor per protocol. Bed alarm on
--- NOTE | 2022-06-09 09:00 | NUR ---
Noted desaturation to 88% when eating. NRB Titrated to 15L at this time
[2022-06-09] MEDS: DEXAMETHASONE 4 MG TABLET PO SCH ×2 (09:04→17:42)
[2022-06-09] MEDS: LOSARTAN POTASSIUM 50 MG TABLET PO SCH (09:04)
[2022-06-09] MEDS: FERROUS SULFATE 325 MG TABEC PO SCH (09:04)
[2022-06-09] MEDS: levETIRAcetam 250 MG TABLET PO SCH (09:04)
[2022-06-09] MEDS: QUETIAPINE FUMARATE 25 MG TABLET PO PRN (09:04)
[2022-06-09] MEDS: ENSURE ENLIVE (VAN) 240 ML LIQUID PO SCH ×2 (09:05→17:42)
--- NOTE | 2022-06-09 11:00 | NUR ---
Noted 100& O2 sat with NRB 15L titrated to 12L with O2 sat of 95%, maintained
[2022-06-09 11:02] VITALS: BP 104/60
--- NOTE | 2022-06-09 12:30 | NUR ---
Assisted with meal, able to eat 50 % of meal with aspiration precaution.
--- NOTE | 2022-06-09 14:00 | NUR ---
O2 per NRB titrated to 10L with O2 sat of 95%, will continue to monitor
[2022-06-09 15:21] VITALS: BP 100/49
--- NOTE | 2022-06-09 17:16 | NUR ---
Incontinence care done. Repositioned comfortably. O2 per NRB titrated to 8L, will continue to monitor
--- NOTE | 2022-06-09 18:27 | NUR ---
Lethargic but easily aroused, open eyes when instructed. Assisted with meal, able to eat 50% of meal served with aspiration precaution. O2 per NRB will try to titrate to 8L and monitor
[2022-06-09 20:00] VITALS: BP 153/60
[2022-06-09] MEDS: SIMVASTATIN 20 MG TABLET PO SCH (21:01)
[2022-06-09] MEDS: levETIRAcetam 500 MG TABLET PO SCH (21:01)
[2022-06-09] MEDS: MELATONIN 3 MG TABLET PO SCH (21:02)
--- NOTE | 2022-06-09 21:30 | NUR ---
Received patient lying in bed. Pt is confused. On soft alessandro. wrist restraints. Continues monitoring per protocol. On non rebreather mask at 13L sating at 93-94%. Labored breathing. IV Site on L UA midline intact and patent. Sinus tachy on tele with HR of 101/min. All PO medications crushed given with apple sauce. No aspiration noted. All needs attended. Safety measure initiated and call light within reached.
[2022-06-10] VITALS: BP 133/79
[2022-06-10] MEDS: LORAZEPAM 2 MG/1 ML VIAL IV PRN (02:50)
[2022-06-10 04:00] VITALS: BP 138/64
[2022-06-10] MEDS: PANTOPRAZOLE SODIUM 40 MG TABLET.DR PO SCH (06:16)
--- NOTE | 2022-06-10 06:27 | NUR ---
Pt agitated, kept on removing Nonbreather mask. Pt desats to 70s without it. Ativan given as ordered. Monitored saturation closely. Pulled out midline. IV site on R hand intact and patent. Noted non pitting edema on right arm. Elevated extremity as needed. Soft Sami wrist restraints maintained. Offered fluids every hour. Skin checks done per protocol. Repositioned comfortably. All needs attended. Safety measures maintained.
[2022-06-10 06:38] LABS: HEMATOCRIT 38.1 % (36.7-47.1); MEAN CORPUSCULAR HEMOGLOBIN 26.2 uug (23.8-33.4); MEAN CORPUSCULAR VOLUME 82.1 fL (73.0-96.2); PLATELET COUNT (AUTO) 140 K/uL (152-348)
[2022-06-10] MEDS: IV D5/ 0.9% NACL 1,000 ML IV PRN (07:15)
[2022-06-10 07:32] LABS: CREATININE 0.9 mg/dL (0.6-1.3); MAGNESIUM 2.2 mg/dL (1.8-2.4); PHOSPHOROUS 2.7 mg/dL (2.5-4.9); POTASSIUM 3.6 mmol/L (3.5-5.1)
--- NOTE | 2022-06-10 09:00 | NUR ---
GOING TO ARU FOR PT. NO C/O DISCOMFORT.
[2022-06-10] MEDS: FERROUS SULFATE 325 MG TABEC PO SCH (09:07)
[2022-06-10] MEDS: levETIRAcetam 250 MG TABLET PO SCH (09:08)
[2022-06-10] MEDS: DEXAMETHASONE 4 MG TABLET PO SCH ×2 (09:08→17:07)
[2022-06-10] MEDS: ENSURE ENLIVE (VAN) 240 ML LIQUID PO SCH ×2 (09:08→17:07)
[2022-06-10] MEDS: LOSARTAN POTASSIUM 50 MG TABLET PO SCH (09:26)
[2022-06-10 11:28] VITALS: BP 115/42
--- NOTE | 2022-06-10 12:00 | NUR ---
DRESSING CHANGED TO BUTTOCKS. INSTRUCTED GOING HOME TODAY. VERBALIZED UNDERSTANDING. VERY FORGETFUL.
--- NOTE | 2022-06-10 13:00 | NUR ---
Spoke with Rosalio Duarte NP re pt's swollen Left arm. Ordered Duplex to r/o DVT.
[2022-06-10 15:06] VITALS: BP 112/47
--- NOTE | 2022-06-10 16:00 | NUR ---
PREPARED FOR DISCHARGE. INC. STOOL WITH LINEN CHANGE. DRESSING CHANGED TO BUTTOCKS. UPSET THAT PATIENT LEAVING SO LATE. INSTRUCTED THAT MD JUST DISCHARGED PATIENT, AND SENT MEDS TO PHARMACY ELECTRONICALLY.
--- NOTE | 2022-06-10 16:45 | NUR ---
DISCHARGED VIA [facility] TO [facility]BULANCE ATTEND[facility]S. DENIES PAIN OR DISCOMFORT.
[2022-06-10 20:00] VITALS: BP 116/65
[2022-06-10] MEDS: levETIRAcetam 500 MG TABLET PO SCH ×2 (21:00→21:12)
[2022-06-10] MEDS: SIMVASTATIN 20 MG TABLET PO SCH (21:13)
[2022-06-10] MEDS: MELATONIN 3 MG TABLET PO SCH (21:13)
[2022-06-10] MEDS ORDERED: levETIRAcetam 500 MG/5 ML LIQUID UDC PO SCH (21:30)
[2022-06-11] VITALS (11 sets, daily range): BP systolic 101–155; BP diastolic 41–66
[2022-06-11] MEDS: IV D5/ 0.9% NACL 1,000 ML IV PRN ×2 (00:39→16:34)
[2022-06-11] MEDS: IPRATROPIUM BROMIDE 0.5 MG/2.5 ML NEBU NEB PRN (03:03)
[2022-06-11] MEDS: LORAZEPAM 2 MG/1 ML VIAL IV PRN ×2 (03:03→13:28)
[2022-06-11] MEDS: ALBUTEROL SULFATE 2.5 MG/3 ML NEBU NEB PRN (03:05)
[2022-06-11] MEDS: PANTOPRAZOLE SODIUM 40 MG TABLET.DR PO SCH (06:03)
--- NOTE | 2022-06-11 06:32 | NUR ---
PATIENT AWAKE IN BED. CONTINUED ON NON-REBREATHER 15L SATING 97%. PATIENT VERY RESTLESS THROUGHOUT THE NIGHT. VSS. AFEBRILE. BED ALARM ON. BED ALARM ON, WILL CONTINUE TO MONITOR AND ASSESS.
[2022-06-11 07:01] LABS: HEMATOCRIT 41.1 % (36.7-47.1); MEAN CORPUSCULAR HEMOGLOBIN 25.9 uug (23.8-33.4); MEAN CORPUSCULAR VOLUME 83.7 fL (73.0-96.2); PLATELET COUNT (AUTO) 138 K/uL (152-348)
[2022-06-11 07:28] LABS: MAGNESIUM 2.3 mg/dL (1.8-2.4); PHOSPHOROUS 3.5 mg/dL (2.5-4.9); POTASSIUM 4.2 mmol/L (3.5-5.1)
--- NOTE | 2022-06-11 07:45 | NUR ---
RECEIVED PATENT VERY RESTLESS ON NRM AT 15 L, REMOVED ON AND OFF IN SPITE OF RESTRAINTS. DR CHU IN AND ORDERED STAT ABG.
--- NOTE | 2022-06-11 08:00 | NUR ---
RESULTS OF ABG NOTED BY DR CHU WITH ORDER TO START PATIENT ON A HI FLOW THEN TRANSFER TO ICU. OVEN DUMPER NOTIFIED AND ICU STAFF
[2022-06-11 08:56] LABS: ABG BASE EXCESS 0.9 mmol/L; ABG HCO3 24.3 mmol/L; ABG PCO2 34.7 mmHg (35.0-45.0); ABG PH 7.463 (7.350-7.450); ABG PO2 58.6 mmHg (75.0-100.0); ABG SITE RIGHT RADIAL; ABG TOTAL HEMOGLOBIN 12.9 G/dL (13.5-18.0); COHb 1.3 % (0.5-1.5); MetHb 0.3 % (0.0-1.5)
[2022-06-11] MEDS: levETIRAcetam 250 MG TABLET PO SCH (09:14)
[2022-06-11] MEDS: DEXAMETHASONE 4 MG TABLET PO SCH ×2 (09:14→16:59)
[2022-06-11] MEDS: LOSARTAN POTASSIUM 50 MG TABLET PO SCH (09:15)
[2022-06-11] MEDS: FERROUS SULFATE 325 MG TABEC PO SCH (09:15)
[2022-06-11] MEDS: ENSURE ENLIVE (VAN) 240 ML LIQUID PO SCH ×2 (09:19→17:18)
--- NOTE | 2022-06-11 09:45 | NUR ---
PATIENT TOLERATING HI FLOW AT 40%, SATURATING 96-97% REPORT GIVEN TO ICU FOR CONTINUITY OF CARE. SR/ST ON MONITOR
--- NOTE | 2022-06-11 12:00 | NUR ---
TRANSFERRED TO ICU FOR HIGHER LEVEL OF CARE PER DR CHU
--- NOTE | 2022-06-11 18:00 | NUR ---
Pt admited to ICU for abnormal ABG and on high flow oxygen on 40 LPM AND 100% FIO2 Sat 97% Pt confused pending transfer to [facility]. Pt remains confused most of the time and screaming for help after taking care of his needs he demands more help. Pr assisted to eat tolerates well intake. Family member daughter at bedside poor coping skills updated about Pt condition Pt remains on restraints to keep him safety in bed. Endorse care to incoming RN
[2022-06-11] MEDS: MELATONIN 3 MG TABLET PO SCH (21:00)
[2022-06-11] MEDS: SIMVASTATIN 20 MG TABLET PO SCH (21:29)
[2022-06-11] MEDS: levETIRAcetam 500 MG TABLET PO SCH (21:29)
[2022-06-12] VITALS (20 sets, daily range): BP systolic 103–158; BP diastolic 38–90
[2022-06-12] MEDS: LORAZEPAM 2 MG/1 ML VIAL IV PRN (01:56)
[2022-06-12] MEDS: IV D5/ 0.9% NACL 1,000 ML IV PRN (04:39)
[2022-06-12] MEDS: PANTOPRAZOLE SODIUM 40 MG TABLET.DR PO SCH (05:20)
[2022-06-12] MEDS: ENSURE ENLIVE (VAN) 240 ML LIQUID PO SCH ×2 (08:01→17:00)
[2022-06-12 08:10] LABS: ABG BASE EXCESS 3.7 mmol/L; ABG HCO3 26.3 mmol/L; ABG PCO2 33.3 mmHg (35.0-45.0); ABG PH 7.516 (7.350-7.450); ABG PO2 60.4 mmHg (75.0-100.0); ABG SITE LEFT RADIAL; ABG TOTAL HEMOGLOBIN 12.2 G/dL (13.5-18.0); COHb 1.2 % (0.5-1.5); MetHb 0.3 % (0.0-1.5); VENT MODE HF - Aquinox
[2022-06-12] MEDS: LOSARTAN POTASSIUM 50 MG TABLET PO SCH (08:45)
[2022-06-12] MEDS: FERROUS SULFATE 325 MG TABEC PO SCH (08:45)
[2022-06-12] MEDS: levETIRAcetam 250 MG TABLET PO SCH (09:26)
[2022-06-12] MEDS: DEXAMETHASONE 4 MG TABLET PO SCH ×2 (09:27→17:00)
[2022-06-12 09:38] LABS: CREATININE 0.7 mg/dL (0.6-1.3); MAGNESIUM 2.1 mg/dL (1.8-2.4); PHOSPHOROUS 2.6 mg/dL (2.5-4.9); POTASSIUM 3.9 mmol/L (3.5-5.1)
[2022-06-12 09:39] LABS: HEMATOCRIT 35.7 % (36.7-47.1); MEAN CORPUSCULAR HEMOGLOBIN 26.3 uug (23.8-33.4); MEAN CORPUSCULAR VOLUME 82.8 fL (73.0-96.2); PLATELET COUNT (AUTO) 119 K/uL (152-348)
[2022-06-12] MEDS ORDERED: IV D5 1/2 NS 1000 ML 1,000 ML IV ONE (13:00)
--- NOTE | 2022-06-12 21:15 | NUR ---
Patient resting in bed requesting water, no s/s of any distress noted. Patient remains with IVF infusing as per order, o2 remains in use and Salgado remains intact. Moist cough noted, abd soft, non tender to palpation, RLE from knee down redness noted to top of foot, LLE slight redness noted with scattered scabbed areas to ankle and foot. Patient repositioned for comfort, bilateral wrist restraint released and reapplied side rails up with call light in reach. 132/[id number]%
[2022-06-12] MEDS: SIMVASTATIN 20 MG TABLET PO SCH (21:45)
[2022-06-12] MEDS: levETIRAcetam 500 MG TABLET PO SCH (21:46)
[2022-06-12] MEDS: MELATONIN 3 MG TABLET PO SCH (21:46)
--- NOTE | 2022-06-12 21:47 | NUR ---
Medicated as per order, BUE swelling and redness noted mid arm with drainage noted. will continue to monitor.
--- NOTE | 2022-06-12 23:48 | NUR ---
Patient remans awake, calling out, more calm when standing bedside. C/o being cold, given a blanket will stay at bedside.
[2022-06-13] VITALS (28 sets, daily range): BP systolic 67–146; BP diastolic 34–75
--- NOTE | 2022-06-13 01:20 | NUR ---
Patient remains awake, bed bath, linen change and oral care done at this time. Patient repositioned, restraints released. IV infiltrated, removed, 3 attempts made to establish a new line unable to do so at this time. Patient tying to sleep at this time, will try again in one hour. 142/81-976-28-95% on high flow. side rails remain up will monitor frequently.
--- NOTE | 2022-06-13 02:06 | NUR ---
Sitting at bedside with patient, requested HOB to be lowered, done at this time.
--- NOTE | 2022-06-13 03:30 | NUR ---
patient fell asleep for about 30 minutes, repositioned for comfort, restraints released and re-applied. No change in primary assessment. side rails remain up with frequent monitoring.
--- NOTE | 2022-06-13 05:12 | NUR ---
Patient cleaned at this time and repositioned for comfort. #22g established in right wrist area, IVF infusing as per order, lab at bedside blood collected. BUE pads changed weeping blood tinged fluids. Salgado out-put was 800cc, 450 intake from IVF. 100cc P.O. patient is winding down and may fall asleep. 129/63-355-41-93% on high flow o2. side rails remain up with call light in reach.
[2022-06-13 05:16] LABS: HEMATOCRIT 30.7 % (36.7-47.1); MEAN CORPUSCULAR HEMOGLOBIN 26.3 uug (23.8-33.4); MEAN CORPUSCULAR VOLUME 84.7 fL (73.0-96.2); PLATELET COUNT (AUTO) 61 K/uL (152-348)
[2022-06-13 05:24] LABS: CREATININE 0.9 mg/dL (0.6-1.3); MAGNESIUM 1.4 mg/dL (1.8-2.4); PHOSPHOROUS 2.2 mg/dL (2.5-4.9)
[2022-06-13 05:34] LABS: POTASSIUM 2.7 mmol/L (3.5-5.1)
--- NOTE | 2022-06-13 05:47 | NUR ---
Reassessment of new IV site, no s/s of infiltration noted, will continue to monitor, Lab called with potassium level of 2.7 and glucose of 880, I ask them to re-draw the patient. Awaiting lab to return to unit.
--- NOTE | 2022-06-13 06:18 | NUR ---
Bedside accu-check done, resulted as 81, order placed for re-draw. Awating lab.
[2022-06-13] MEDS: QUETIAPINE FUMARATE 25 MG TABLET PO PRN ×2 (07:41→20:20)
[2022-06-13] MEDS: PANTOPRAZOLE SODIUM 40 MG TABLET.DR PO SCH (07:41)
[2022-06-13 08:56] LABS: ABG BASE EXCESS -0.5 mmol/L; ABG HCO3 21.8 mmol/L; ABG PCO2 28.9 mmHg (35.0-45.0); ABG PH 7.496 (7.350-7.450); ABG PO2 52.2 mmHg (75.0-100.0); ABG SITE RIGHT BRACHIAL; COHb 1.2 % (0.5-1.5); MetHb 0.3 % (0.0-1.5); O2Hb 88.1 % (94.0-97.0); VENT MODE HFNC
[2022-06-13] MEDS: ENSURE ENLIVE (VAN) 240 ML LIQUID PO SCH ×2 (09:00→17:00)
[2022-06-13] MEDS ORDERED: POTASSIUM CHLORIDE 20 MEQ TAB.PRT.SR PO ONE ×2 (09:30→12:30)
[2022-06-13] MEDS: POTASSIUM CHLORIDE 20 MEQ POWDER PACKET PO SCH ×2 (09:55→14:54)
[2022-06-13] MEDS: MAGNESIUM SULFATE/D5W 100 ML IV SCH ×4 (09:56→14:32)
[2022-06-13] MEDS: DEXAMETHASONE 4 MG TABLET PO SCH ×2 (09:57→17:09)
[2022-06-13] MEDS: FERROUS SULFATE 325 MG TABEC PO SCH (09:57)
[2022-06-13] MEDS: ACETAMINOPHEN 325 MG TABLET PO PRN (09:57)
[2022-06-13] MEDS: LOSARTAN POTASSIUM 50 MG TABLET PO SCH (09:58)
[2022-06-13] MEDS: levETIRAcetam 250 MG TABLET PO SCH (10:04)
[2022-06-13 11:09] LABS: BILIRUBIN,TOTAL 0.8 mg/dL (0.2-1.0); CREATININE 0.8 mg/dL (0.6-1.3); POTASSIUM 3.8 mmol/L (3.5-5.1); TOTAL PROTEIN, SERUM 5.6 g/dL (6.4-8.2)
[2022-06-13] MEDS ORDERED: IV NS 1000 ML 1,000 ML IV ONE (13:00)
[2022-06-13] MEDS ORDERED: NOREPINEPHRINE BITARTRATE 8 MG in IV NORMAL SALINE 242 ML IV PRN (13:00)
[2022-06-13] MEDS: IV D5 1/2 NS 1000 ML 1,000 ML IV PRN (15:04)
[2022-06-13] MEDS ORDERED: NEUTRA PHOS PACKET PO ONE (16:00)
[2022-06-13 17:21] LABS: *RHEUMATOID FACTOR SCREEN NEGATIVE (NEGATIVE)
[2022-06-13] MEDS: levETIRAcetam 500 MG TABLET PO SCH (20:18)
[2022-06-13] MEDS: MELATONIN 3 MG TABLET PO SCH (20:19)
[2022-06-13] MEDS: SIMVASTATIN 20 MG TABLET PO SCH (20:21)
--- NOTE | 2022-06-13 20:30 | NUR ---
Pt received hypotensive with SBP 84 am LAB RESULTS bun 1.0 Albumin 1.7 PLT 61 K 3.8. Observed bilateral arms third spacing call Dr Schmid for orders inform no NGT placed due to low PLTS count 61 and possible nose trauma due to pt mental status agitation and restlessness. order Albumen 25% 100 ml over two hours lot# [id number] exp 13 FEB 2025 50 MLx2. Pt tolerates well infusion SBP 132/62 MAP 89 continue monitoring condition.Pt remains on high flow oxygen 40 LPM FIO2 100% Pt at times mouth breather and oral care done to moistures gums. HOB kept above 30 degrees.
[2022-06-13] MEDS ORDERED: ALBUMIN HUMAN 25% 100 ML IV ONE (21:00)
[2022-06-14] VITALS (31 sets, daily range): BP systolic 83–146; BP diastolic 38–78
[2022-06-14] MEDS: IV D5 1/2 NS 1000 ML 1,000 ML IV PRN ×2 (03:37→16:49)
[2022-06-14 05:08] LABS: MEAN CORPUSCULAR HEMOGLOBIN 25.8 uug (23.8-33.4); MEAN CORPUSCULAR VOLUME 82.8 fL (73.0-96.2); PLATELET COUNT (AUTO) 54 K/uL (152-348)
[2022-06-14 05:18] LABS: CARBON DIOXIDE 28 mmol/L (21-32); CHLORIDE 115 mmol/L (98-107); CREATININE 0.8 mg/dL (0.6-1.3); GLUCOSE 183 mg/dL (74-106); MAGNESIUM 2.6 mg/dL (1.8-2.4); PHOSPHOROUS 3.6 mg/dL (2.5-4.9); POTASSIUM 4.2 mmol/L (3.5-5.1); UREA NITROGEN, BLOOD 26 mg/dL (7-18)
[2022-06-14] MEDS: IPRATROPIUM BROMIDE 0.5 MG/2.5 ML NEBU NEB PRN ×2 (06:04→11:50)
[2022-06-14] MEDS: ALBUTEROL SULFATE 2.5 MG/3 ML NEBU NEB PRN ×2 (06:04→11:50)
--- NOTE | 2022-06-14 06:07 | NUR ---
0555 Pt observed SOB SAT 84% ON HIGH FLOW+NRBM 100% Fio2 RT was called and Pt was placed on BIPAP with settings 15/5 BUR 16 fio2 100% Pt saturation improved to 95%. Pt resting comfortable afebrile, continue monitoring condition.
[2022-06-14] MEDS: PANTOPRAZOLE SODIUM 40 MG TABLET.DR PO SCH (07:00)
--- NOTE | 2022-06-14 07:15 | NUR ---
Received pt. on BIPAP15/5 Rate of 16 and 100% FIO2. saturation of 10%. Patient responsive to name calling. On sinus tachycardia rate in the low teens <than 120's. sbp within desired limits. mariscal with bloody output, TLC right femoral patent, blood cultures sent as ordered.
--- NOTE | 2022-06-14 07:28 | NUR ---
Patient placed on High flow 100% 40L. saturation drop to 86%. RR in the 28. Patient tolerating it poorly.
[2022-06-14] MEDS ORDERED: PIPERACILLIN SODIUM/TAZOBACTAM 3.375 G in IV DEXTROSE 5% 50 ML IV ONE (08:00)
[2022-06-14] MEDS: FERROUS SULFATE 325 MG TABEC PO SCH (08:11)
[2022-06-14] MEDS: ENSURE ENLIVE (VAN) 240 ML LIQUID PO SCH ×2 (08:11→16:49)
[2022-06-14] MEDS: SULFAMETH/TRIMETH 800/160 MG TABLET PO SCH (08:11)
[2022-06-14] MEDS: DEXAMETHASONE 4 MG TABLET PO SCH (08:11)
[2022-06-14] MEDS: levETIRAcetam 250 MG TABLET PO SCH (08:11)
[2022-06-14 09:04] LABS: ABG BASE EXCESS 1.6 mmol/L; ABG HCO3 26.1 mmol/L; ABG PCO2 40.8 mmHg (35.0-45.0); ABG PH 7.424 (7.350-7.450); ABG PO2 78.5 mmHg (75.0-100.0); ABG SITE LEFT RADIAL; ABG TOTAL HEMOGLOBIN 10.1 G/dL (13.5-18.0); COHb 0.9 % (0.5-1.5); MetHb 0.3 % (0.0-1.5); O2Hb 93.9 % (94.0-97.0); VENT MODE BIPAP
--- NOTE | 2022-06-14 10:42 | NUR ---
Pulmonary services, Dr. Clemente in the unit to see and examine pt. report given, orders to continue care plan.
[2022-06-14 11:07] LABS: *ANTI-SCLERODERMA-70 AB <0.2 AI (0.0-0.9); *SJOGREN'S ANTI-SS-A <0.2 AI (0.0-0.9); *SJOGREN'S ANTI-SS-B <0.2 AI (0.0-0.9); *SMITH ANTIBODIES <0.2 AI (0.0-0.9); ANTI-DNA(DS) AB, QN <1 IU/mL (0-9)
--- NOTE | 2022-06-14 11:21 | NUR ---
Attending Joao Wilcox in the unit to examine pt. report given see order hx.
[2022-06-14] MEDS: LORAZEPAM 2 MG/1 ML VIAL IV PRN (12:37)
[2022-06-14] MEDS ORDERED: levETIRAcetam IV 500 MG in IV DEXTROSE 5% 100 ML IV SCH (14:00)
[2022-06-14] MEDS: DEXAMETHASONE SOD PHOSPHATE 4 MG INJ IV SCH ×2 (14:07→21:27)
[2022-06-14] MEDS: PIPERACILLIN SODIUM/TAZOBACTAM 3.375 G in IV DEXTROSE 5% 100 ML IV SCH ×2 (15:59→23:09)
--- NOTE | 2022-06-14 17:15 | NUR ---
Pt has remained on bipap throughout shift, Fio2 at 100%. Protecta-gel applied under mask for skin integrity, skin intact, some redness noted. Nt/oral sxn prn. Tachypnea, mild distress, pt using accessory muscles. Hhn treatments given prn. Will continue to monitor and follow current respiratory orders.
[2022-06-14] MEDS: SIMVASTATIN 20 MG TABLET PO SCH (21:00)
[2022-06-14] MEDS: MELATONIN 3 MG TABLET PO SCH (21:00)
[2022-06-14] MEDS: levETIRAcetam IV 250 MG in IV DEXTROSE 5% 100 ML IV SCH (21:27)
[2022-06-15] VITALS (23 sets, daily range): BP systolic 117–241; BP diastolic 57–95
[2022-06-15 04:55] LABS: HEMATOCRIT 30.9 % (36.7-47.1); MEAN CORPUSCULAR HEMOGLOBIN 26.2 uug (23.8-33.4); MEAN CORPUSCULAR VOLUME 81.8 fL (73.0-96.2); PLATELET COUNT (AUTO) 64 K/uL (152-348)
[2022-06-15 05:11] LABS: CARBON DIOXIDE 29 mmol/L (21-32); CHLORIDE 110 mmol/L (98-107); CREATININE 0.9 mg/dL (0.6-1.3); GLUCOSE 155 mg/dL (74-106); MAGNESIUM 2.1 mg/dL (1.8-2.4); PHOSPHOROUS 3.3 mg/dL (2.5-4.9); POTASSIUM 4.2 mmol/L (3.5-5.1); UREA NITROGEN, BLOOD 21 mg/dL (7-18)
[2022-06-15 06:07] LABS: HEPATITIS B SURFACE AG Negative (Negative)
--- NOTE | 2022-06-15 07:17 | NUR ---
Left pt. slightly agitated on sinus tachycardia SBP within desired limits. mariscal to gravity. BIpap 18/5 rate of 16, and 100% FIO2. Will endorse for continuity of care.
[2022-06-15 07:32] LABS: ABG BASE EXCESS 1.3 mmol/L; ABG HCO3 24.7 mmol/L; ABG PCO2 34.5 mmHg (35.0-45.0); ABG PH 7.473 (7.350-7.450); ABG PO2 59.6 mmHg (75.0-100.0); ABG SITE LEFT BRACHIAL; ABG TOTAL HEMOGLOBIN 10.1 G/dL (13.5-18.0); COHb 0.9 % (0.5-1.5); MetHb 0.3 % (0.0-1.5); O2Hb 90.3 % (94.0-97.0); VENT MODE BIPAP
[2022-06-15] MEDS: FERROUS SULFATE 325 MG TABEC PO SCH (09:00)
[2022-06-15] MEDS: ENSURE ENLIVE (VAN) 240 ML LIQUID PO SCH ×2 (09:00→17:00)
[2022-06-15] MEDS: PIPERACILLIN SODIUM/TAZOBACTAM 3.375 G in IV DEXTROSE 5% 100 ML IV SCH ×4 (09:07→23:34)
[2022-06-15] MEDS: levETIRAcetam IV 250 MG in IV DEXTROSE 5% 100 ML IV SCH ×2 (09:07→20:55)
[2022-06-15] MEDS: DEXAMETHASONE SOD PHOSPHATE 4 MG INJ IV SCH ×2 (09:07→20:49)
[2022-06-15] MEDS: FAMOTIDINE. 20 MG/2 ML VIAL IV SCH (09:08)
[2022-06-15] MEDS: SULFAMETH/TRIMETH 800/160 MG TABLET PO SCH (09:08)
[2022-06-15] MEDS: SIMVASTATIN 20 MG TABLET PO SCH (20:49)
[2022-06-15] MEDS: MELATONIN 3 MG TABLET PO SCH (20:49)
[2022-06-16] VITALS (20 sets, daily range): BP systolic 95–161; BP diastolic 45–92
[2022-06-16] MEDS: IV D5 1/2 NS 1000 ML 1,000 ML IV PRN ×3 (04:21→23:14)
[2022-06-16 04:59] LABS: HEMATOCRIT 32.4 % (36.7-47.1); MEAN CORPUSCULAR HEMOGLOBIN 25.9 uug (23.8-33.4); MEAN CORPUSCULAR VOLUME 81.5 fL (73.0-96.2); PLATELET COUNT (AUTO) 51 K/uL (152-348)
[2022-06-16 05:14] LABS: ALANINE AMINOTRANSFERASE 17 U/L (16-63); ALKALINE PHOSPHATASE 172 U/L (50-136); ASPARTATE AMINOTRANSFERASE 21 U/L (15-37); BILIRUBIN,DIRECT 0.2 mg/dL (0.0-0.2); BILIRUBIN,TOTAL 0.8 mg/dL (0.2-1.0); CARBON DIOXIDE 28 mmol/L (21-32); CHLORIDE 107 mmol/L (98-107); CREATININE 0.8 mg/dL (0.6-1.3); GLUCOSE 134 mg/dL (74-106); PHOSPHOROUS 3.1 mg/dL (2.5-4.9); POTASSIUM 4.1 mmol/L (3.5-5.1); TOTAL PROTEIN, SERUM 5.5 g/dL (6.4-8.2); UREA NITROGEN, BLOOD 19 mg/dL (7-18)
[2022-06-16] MEDS: PIPERACILLIN SODIUM/TAZOBACTAM 3.375 G in IV DEXTROSE 5% 100 ML IV SCH ×2 (07:59→15:47)
[2022-06-16] MEDS: ENSURE ENLIVE (VAN) 240 ML LIQUID PO SCH ×2 (08:00→15:47)
[2022-06-16] MEDS: SULFAMETH/TRIMETH 800/160 MG TABLET PO SCH (08:01)
[2022-06-16] MEDS: FERROUS SULFATE 325 MG TABEC PO SCH (08:01)
[2022-06-16] MEDS: levETIRAcetam IV 250 MG in IV DEXTROSE 5% 100 ML IV SCH ×2 (08:02→20:53)
[2022-06-16] MEDS: FAMOTIDINE. 20 MG/2 ML VIAL IV SCH (08:06)
[2022-06-16] MEDS: DEXAMETHASONE SOD PHOSPHATE 4 MG INJ IV SCH ×2 (08:06→20:52)
[2022-06-16] MEDS ORDERED: TPN/PPN PER PHARMACY IV PRN (13:15)
[2022-06-16] MEDS ORDERED: DEXTROSE 50% 50 ML DISP.SYRIN IV PRN (15:00)
[2022-06-16] MEDS ORDERED: TPN BAG #1 IV SCH (16:00)
[2022-06-16] MEDS: BLOOD SUGAR DIAGNOSTIC 1 EACH STRIP VI SCH (18:19)
[2022-06-16] MEDS: MELATONIN 3 MG TABLET PO SCH (21:00)
[2022-06-16] MEDS: SIMVASTATIN 20 MG TABLET PO SCH (21:00)
[2022-06-17] VITALS (23 sets, daily range): BP systolic 123–151; BP diastolic 49–95
[2022-06-17] MEDS: PIPERACILLIN SODIUM/TAZOBACTAM 3.375 G in IV DEXTROSE 5% 100 ML IV SCH ×4 (00:22→23:19)
[2022-06-17 05:02] LABS: HEMATOCRIT 32.5 % (36.7-47.1); MEAN CORPUSCULAR HEMOGLOBIN 26.3 uug (23.8-33.4); MEAN CORPUSCULAR VOLUME 81.3 fL (73.0-96.2); PLATELET COUNT (AUTO) 65 K/uL (152-348)
[2022-06-17 05:39] LABS: CREATININE 0.8 mg/dL (0.6-1.3); MAGNESIUM 1.8 mg/dL (1.8-2.4); PHOSPHOROUS 2.6 mg/dL (2.5-4.9); POTASSIUM 3.8 mmol/L (3.5-5.1)
[2022-06-17] MEDS: BLOOD SUGAR DIAGNOSTIC 1 EACH STRIP VI SCH ×5 (06:02→23:57)
[2022-06-17 07:08] LABS: LYMPHOCYTES % (MANUAL) 4 % (20-40); MONOCYTES % (MANUAL) 1 % (2-10); NEUTROPHILS % (MANUAL) 95 % (42-75)
--- NOTE | 2022-06-17 07:21 | NUR ---
REPORT GIVEN TO TYLER COLLINS
[2022-06-17 07:56] LABS: ABG BASE EXCESS 1.4 mmol/L; ABG HCO3 25.4 mmol/L; ABG PCO2 37.9 mmHg (35.0-45.0); ABG PH 7.444 (7.350-7.450); ABG PO2 50.9 mmHg (75.0-100.0); ABG SITE LEFT BRACHIAL; COHb 1.2 % (0.5-1.5); MetHb 0.3 % (0.0-1.5); O2Hb 85.5 % (94.0-97.0); VENT MODE BIPAP
[2022-06-17] MEDS: ENSURE ENLIVE (VAN) 240 ML LIQUID PO SCH ×2 (09:00→16:34)
[2022-06-17] MEDS: SULFAMETH/TRIMETH 800/160 MG TABLET PO SCH (09:00)
[2022-06-17] MEDS: FERROUS SULFATE 325 MG TABEC PO SCH (09:00)
[2022-06-17] MEDS: FAMOTIDINE. 20 MG/2 ML VIAL IV SCH (09:40)
[2022-06-17] MEDS: DEXAMETHASONE SOD PHOSPHATE 4 MG INJ IV SCH ×2 (09:40→20:52)
[2022-06-17] MEDS: levETIRAcetam IV 250 MG in IV DEXTROSE 5% 100 ML IV SCH ×2 (09:40→20:52)
[2022-06-17] MEDS ORDERED: IV D5 1/2 NS 1000 ML 1,000 ML IV PRN (16:00)
[2022-06-17] MEDS ORDERED: TPN BAG #2 IV SCH ×3 (16:00)
[2022-06-17] MEDS: INSULIN REGULAR, HUMAN 300 UNIT/3 ML VIAL SQ PRN (17:49)
[2022-06-17] MEDS: SIMVASTATIN 20 MG TABLET PO SCH (21:00)
[2022-06-17] MEDS: MELATONIN 3 MG TABLET PO SCH (21:00)
[2022-06-18] VITALS (23 sets, daily range): BP systolic 130–158; BP diastolic 68–97
--- NOTE | 2022-06-18 | NUR ---
@2220 placed pt on new MD BIPAP setting. after [address] pt back on previous setting due to increase WOB and HR. Spo2 also decreased down to 86%. after pt on previous setting SPo2 increased to 90% and pt WOB showed improvement. will cont to monitor.
[2022-06-18 05:25] LABS: HEMATOCRIT 32.3 % (36.7-47.1); MEAN CORPUSCULAR HEMOGLOBIN 26.2 uug (23.8-33.4); MEAN CORPUSCULAR VOLUME 81.5 fL (73.0-96.2); PLATELET COUNT (AUTO) 78 K/uL (152-348)
[2022-06-18 05:27] LABS: CREATININE 0.8 mg/dL (0.6-1.3); MAGNESIUM 1.9 mg/dL (1.8-2.4); PHOSPHOROUS 2.3 mg/dL (2.5-4.9); POTASSIUM 3.7 mmol/L (3.5-5.1)
[2022-06-18] MEDS: BLOOD SUGAR DIAGNOSTIC 1 EACH STRIP VI SCH ×3 (06:04→18:04)
[2022-06-18 06:29] LABS: BAND % (MANUAL) 1 % (0-10); LYMPHOCYTES % (MANUAL) 1 % (20-40); MONOCYTES % (MANUAL) 1 % (2-10); NEUTROPHILS % (MANUAL) 97 % (42-75)
[2022-06-18] MEDS: PIPERACILLIN SODIUM/TAZOBACTAM 3.375 G in IV DEXTROSE 5% 100 ML IV SCH ×3 (07:48→23:11)
[2022-06-18 07:55] LABS: ABG BASE EXCESS 0.3 mmol/L; ABG HCO3 24.5 mmol/L; ABG PCO2 37.9 mmHg (35.0-45.0); ABG PH 7.428 (7.350-7.450); ABG PO2 56.8 mmHg (75.0-100.0); ABG SITE RIGHT RADIAL; ABG TOTAL HEMOGLOBIN 11.4 G/dL (13.5-18.0); COHb 1.1 % (0.5-1.5); MetHb 0.3 % (0.0-1.5); O2Hb 88.8 % (94.0-97.0); VENT MODE BIPAP 18/6
[2022-06-18] MEDS: levETIRAcetam IV 250 MG in IV DEXTROSE 5% 100 ML IV SCH ×2 (08:37→20:51)
[2022-06-18] MEDS: SULFAMETH/TRIMETH 800/160 MG TABLET PO SCH (08:37)
[2022-06-18] MEDS: FAMOTIDINE. 20 MG/2 ML VIAL IV SCH (08:37)
[2022-06-18] MEDS: DEXAMETHASONE SOD PHOSPHATE 4 MG INJ IV SCH (08:37)
[2022-06-18] MEDS: ENSURE ENLIVE (VAN) 240 ML LIQUID PO SCH ×2 (08:38→16:15)
[2022-06-18] MEDS: FERROUS SULFATE 325 MG TABEC PO SCH (08:38)
--- NOTE | 2022-06-18 08:42 | NUR ---
Pulmonary rounding settings changed on bi pap. 20/10 and decrease FIO2 90%
--- NOTE | 2022-06-18 09:18 | NUR ---
Central line dressing changed using sterile technique dressing was loose.
[2022-06-18] MEDS: methylPREDNISolone SOD SUCC 1,000 MG in IV DEXTROSE 5% 250 ML IV SCH (09:52)
[2022-06-18] MEDS ORDERED: TPN BAG #3 IV SCH ×7 (16:00)
[2022-06-18] MEDS: INSULIN REGULAR, HUMAN 300 UNIT/3 ML VIAL SQ PRN (18:05)
[2022-06-18] MEDS: SIMVASTATIN 20 MG TABLET PO SCH (20:52)
[2022-06-18] MEDS: BISACODYL 10 MG SUPP.RECT RC SCH (20:52)
[2022-06-18] MEDS: MELATONIN 3 MG TABLET PO SCH (20:52)
[2022-06-19] VITALS (24 sets, daily range): BP systolic 127–166; BP diastolic 54–96
[2022-06-19] MEDS: BLOOD SUGAR DIAGNOSTIC 1 EACH STRIP VI SCH ×4 (00:18→17:45)
[2022-06-19] MEDS: INSULIN REGULAR, HUMAN 300 UNIT/3 ML VIAL SQ PRN ×4 (00:21→17:49)
[2022-06-19 05:31] LABS: CREATININE 0.6 mg/dL (0.6-1.3); MAGNESIUM 2.1 mg/dL (1.8-2.4); PHOSPHOROUS 2.3 mg/dL (2.5-4.9); POTASSIUM 3.7 mmol/L (3.5-5.1)
[2022-06-19 05:41] LABS: MEAN CORPUSCULAR HEMOGLOBIN 26.1 uug (23.8-33.4); MEAN CORPUSCULAR VOLUME 81.1 fL (73.0-96.2); PLATELET COUNT (AUTO) 89 K/uL (152-348)
[2022-06-19 07:29] LABS: BAND % (MANUAL) 5 % (0-10); LYMPHOCYTES % (MANUAL) 2 % (20-40); MONOCYTES % (MANUAL) 2 % (2-10); NEUTROPHILS % (MANUAL) 91 % (42-75)
[2022-06-19] MEDS: PIPERACILLIN SODIUM/TAZOBACTAM 3.375 G in IV DEXTROSE 5% 100 ML IV SCH ×2 (07:48→15:49)
[2022-06-19] MEDS: SULFAMETH/TRIMETH 800/160 MG TABLET PO SCH (08:48)
[2022-06-19] MEDS: ENSURE ENLIVE (VAN) 240 ML LIQUID PO SCH ×2 (08:48→17:00)
[2022-06-19] MEDS: FAMOTIDINE. 20 MG/2 ML VIAL IV SCH (08:48)
[2022-06-19] MEDS: levETIRAcetam IV 250 MG in IV DEXTROSE 5% 100 ML IV SCH ×2 (08:48→20:27)
[2022-06-19] MEDS: FERROUS SULFATE 325 MG TABEC PO SCH (08:49)
[2022-06-19] MEDS ORDERED: TPN BAG #4 IV SCH ×4 (10:00)
[2022-06-19] MEDS: methylPREDNISolone SOD SUCC 1,000 MG in IV DEXTROSE 5% 250 ML IV SCH (11:37)
[2022-06-19] MEDS: MELATONIN 3 MG TABLET PO SCH (21:00)
[2022-06-19] MEDS: SIMVASTATIN 20 MG TABLET PO SCH (21:00)
[2022-06-19] MEDS: BISACODYL 10 MG SUPP.RECT RC SCH (21:33)
[2022-06-20] VITALS (22 sets, daily range): BP systolic 109–160; BP diastolic 59–84
[2022-06-20] MEDS: PIPERACILLIN SODIUM/TAZOBACTAM 3.375 G in IV DEXTROSE 5% 100 ML IV SCH ×4 (00:16→23:28)
[2022-06-20] MEDS: BLOOD SUGAR DIAGNOSTIC 1 EACH STRIP VI SCH ×4 (00:32→17:25)
[2022-06-20 05:17] LABS: HEMATOCRIT 30.5 % (36.7-47.1); MEAN CORPUSCULAR VOLUME 81.6 fL (73.0-96.2); PLATELET COUNT (AUTO) 76 K/uL (152-348)
[2022-06-20 05:33] LABS: CARBON DIOXIDE 33 mmol/L (21-32); CHLORIDE 101 mmol/L (98-107); CREATININE 0.6 mg/dL (0.6-1.3); GLUCOSE 191 mg/dL (74-106); MAGNESIUM 1.9 mg/dL (1.8-2.4); PHOSPHOROUS 2.1 mg/dL (2.5-4.9); POTASSIUM 3.7 mmol/L (3.5-5.1); UREA NITROGEN, BLOOD 25 mg/dL (7-18)
--- NOTE | 2022-06-20 07:10 | NUR ---
Received. pt. on bipap 20/10, Rate 16 FIO2 70%. On sinus rhythm sbp within desired limits. Will continue with care plan.
--- NOTE | 2022-06-20 07:30 | NUR ---
REPORT GIVEN TO TYLER SANTIAGO
[2022-06-20] MEDS: IPRATROPIUM BROMIDE 0.5 MG/2.5 ML NEBU NEB PRN (07:52)
[2022-06-20] MEDS: ALBUTEROL SULFATE 2.5 MG/3 ML NEBU NEB PRN (07:52)
[2022-06-20] MEDS: levETIRAcetam IV 250 MG in IV DEXTROSE 5% 100 ML IV SCH ×2 (08:01→21:44)
[2022-06-20] MEDS: FAMOTIDINE. 20 MG/2 ML VIAL IV SCH (08:02)
[2022-06-20] MEDS: SULFAMETH/TRIMETH 800/160 MG TABLET PO SCH (08:22)
[2022-06-20] MEDS: ENSURE ENLIVE (VAN) 240 ML LIQUID PO SCH ×2 (08:22→16:49)
[2022-06-20] MEDS: FERROUS SULFATE 325 MG TABEC PO SCH (08:22)
[2022-06-20] MEDS ORDERED: TPN BAG #5 IV SCH ×5 (10:00)
[2022-06-20] MEDS: methylPREDNISolone SOD SUCC 1,000 MG in IV DEXTROSE 5% 250 ML IV SCH (10:03)
[2022-06-20] MEDS: INSULIN REGULAR, HUMAN 300 UNIT/3 ML VIAL SQ PRN ×2 (11:34→17:29)
--- NOTE | 2022-06-20 19:45 | NUR ---
Patient remains on BiPap 20/10 FIO2 at 70% TPN at 95ml/hr no distress noted.
[2022-06-20] MEDS: BISACODYL 10 MG SUPP.RECT RC SCH (21:44)
[2022-06-20] MEDS: SIMVASTATIN 20 MG TABLET PO SCH (21:55)
[2022-06-20] MEDS: MELATONIN 3 MG TABLET PO SCH (21:55)
[2022-06-21] VITALS (24 sets, daily range): BP systolic 135–169; BP diastolic 62–84
[2022-06-21] MEDS: BLOOD SUGAR DIAGNOSTIC 1 EACH STRIP VI SCH ×5 (00:02→23:55)
[2022-06-21] MEDS: INSULIN REGULAR, HUMAN 300 UNIT/3 ML VIAL SQ PRN ×4 (00:10→23:56)
[2022-06-21 05:10] LABS: HEMATOCRIT 29.2 % (36.7-47.1); MEAN CORPUSCULAR HEMOGLOBIN 26.1 uug (23.8-33.4); MEAN CORPUSCULAR VOLUME 82.2 fL (73.0-96.2); PLATELET COUNT (AUTO) 111 K/uL (152-348)
[2022-06-21 05:19] LABS: ALANINE AMINOTRANSFERASE 43 U/L (16-63); ALKALINE PHOSPHATASE 177 U/L (50-136); ASPARTATE AMINOTRANSFERASE 35 U/L (15-37); BILIRUBIN,DIRECT 0.4 mg/dL (0.0-0.2); BILIRUBIN,TOTAL 0.7 mg/dL (0.2-1.0); CARBON DIOXIDE 36 mmol/L (21-32); CHLORIDE 102 mmol/L (98-107); CREATININE 0.6 mg/dL (0.6-1.3); GLUCOSE 178 mg/dL (74-106); MAGNESIUM 1.8 mg/dL (1.8-2.4); PHOSPHOROUS 2.4 mg/dL (2.5-4.9); POTASSIUM 4.1 mmol/L (3.5-5.1); TOTAL PROTEIN, SERUM 5.1 g/dL (6.4-8.2); UREA NITROGEN, BLOOD 28 mg/dL (7-18)
[2022-06-21] MEDS ORDERED: TPN BAG #6 IV SCH (07:00)
[2022-06-21] MEDS: PIPERACILLIN SODIUM/TAZOBACTAM 3.375 G in IV DEXTROSE 5% 100 ML IV SCH ×3 (07:35→23:43)
--- NOTE | 2022-06-21 07:40 | NUR ---
Received pt. on BIPAP 20/10 rate of 16 FIO2 705, saturation of 92%, RR in the mid 20's. Pt. oriented to name only,. Hemodynamically on sinus rhythm sbp within desired limits. As reported pt. quickly desaturates to the low 70's when off bipap. mariscal to gravity TLC right femoral patent. Will continue with care plan.
[2022-06-21] MEDS: levETIRAcetam IV 250 MG in IV DEXTROSE 5% 100 ML IV SCH ×2 (08:24→20:24)
[2022-06-21] MEDS: FAMOTIDINE. 20 MG/2 ML VIAL IV SCH (08:24)
[2022-06-21] MEDS: FERROUS SULFATE 325 MG TABEC PO SCH (08:25)
[2022-06-21] MEDS: SULFAMETH/TRIMETH 800/160 MG TABLET PO SCH (08:25)
[2022-06-21] MEDS: ENSURE ENLIVE (VAN) 240 ML LIQUID PO SCH ×2 (08:25→17:00)
--- NOTE | 2022-06-21 09:13 | NUR ---
Attending Joao Kulkarni in the unit to follow up on pt. report given, orders to continue with care plan.
--- NOTE | 2022-06-21 09:30 | NUR ---
Pulmonary services Dr. Clemente in the unit to see and examine pt. report given orders to continue with care plan received.
[2022-06-21] MEDS ORDERED: IV FAT EMULSIONS 20% 250 ML IV ONE (13:00)
[2022-06-21] MEDS ORDERED: TPN BAG #7 IV SCH ×6 (17:00)
[2022-06-21] MEDS: SIMVASTATIN 20 MG TABLET PO SCH (20:24)
[2022-06-21] MEDS: MELATONIN 3 MG TABLET PO SCH (20:24)
[2022-06-21] MEDS: BISACODYL 10 MG SUPP.RECT RC SCH (20:25)
[2022-06-22] VITALS (21 sets, daily range): BP systolic 59–132; BP diastolic 41–77
[2022-06-22 04:49] LABS: HEMATOCRIT 27.8 % (36.7-47.1); MEAN CORPUSCULAR HEMOGLOBIN 26.3 uug (23.8-33.4); MEAN CORPUSCULAR VOLUME 81.6 fL (73.0-96.2); PLATELET COUNT (AUTO) 89 K/uL (152-348)
[2022-06-22 05:01] LABS: CARBON DIOXIDE 36 mmol/L (21-32); CHLORIDE 101 mmol/L (98-107); CREATININE 0.5 mg/dL (0.6-1.3); GLUCOSE 165 mg/dL (74-106); MAGNESIUM 1.7 mg/dL (1.8-2.4); PHOSPHOROUS 1.9 mg/dL (2.5-4.9); POTASSIUM 3.7 mmol/L (3.5-5.1); UREA NITROGEN, BLOOD 28 mg/dL (7-18)
[2022-06-22] MEDS: BLOOD SUGAR DIAGNOSTIC 1 EACH STRIP VI SCH ×3 (06:39→18:21)
[2022-06-22] MEDS: MAGNESIUM SULFATE/D5W 100 ML IV SCH ×2 (06:40→07:36)
[2022-06-22] MEDS: INSULIN REGULAR, HUMAN 300 UNIT/3 ML VIAL SQ PRN ×3 (06:42→18:23)
--- NOTE | 2022-06-22 07:01 | NUR ---
Left pt. on BIPAP with no change in settings. Neuro-león remains oriented to name on/off. Hemodynamically stable with sbp within desired limits. Afebrile no hypothermia for the night. Will endorse for continuity of care.
[2022-06-22] MEDS: levETIRAcetam IV 250 MG in IV DEXTROSE 5% 100 ML IV SCH ×2 (07:47→21:13)
[2022-06-22] MEDS: PIPERACILLIN SODIUM/TAZOBACTAM 3.375 G in IV DEXTROSE 5% 100 ML IV SCH (07:47)
[2022-06-22] MEDS: ENSURE ENLIVE (VAN) 240 ML LIQUID PO SCH ×2 (07:52→16:22)
[2022-06-22] MEDS: SULFAMETH/TRIMETH 800/160 MG TABLET PO SCH (07:52)
[2022-06-22] MEDS: FERROUS SULFATE 325 MG TABEC PO SCH (07:53)
[2022-06-22] MEDS: FAMOTIDINE. 20 MG/2 ML VIAL IV SCH (07:58)
[2022-06-22] MEDS ORDERED: POTASSIUM PHOSPHATE MM 15 MMOL in IV NORMAL SALINE 250 ML IV ONE (08:00)
[2022-06-22] MEDS ORDERED: TPN BAG #8 IV SCH ×6 (14:00)
[2022-06-22] MEDS: DEXAMETHASONE SOD PHOSPHATE 4 MG INJ IV SCH (18:23)
[2022-06-22] MEDS: SIMVASTATIN 20 MG TABLET PO SCH (21:00)
[2022-06-22] MEDS: MELATONIN 3 MG TABLET PO SCH (21:00)
[2022-06-22] MEDS: BISACODYL 10 MG SUPP.RECT RC SCH (21:19)
--- NOTE | 2022-06-22 23:05 | NUR ---
Patient desaturated, bradycardia, hyotensive & cyanotic. Patient pronounced by [employer]: Long @ 23:05. Daughter Erika Castro (dtr) [phone] notified @ 23:20. Erika will contact nursing shift supervisor rn in AM; with [employer] information,
--- NOTE | 2022-06-22 23:30 | NUR ---
PT APNEIC FOR 5 MINUTES. PUPILS FIXED AND DILATED. NO AUDIBLE HEART TONES OR BREATH SOUNDS FOR 1 MINUTE. NO PALPABLE PULSES FOR 1 MINUTE. NO CORNEAL REFLEXES. PT PRONOUNCED AT 2305. CCU RN TO NOTIFY EPIC CLINICIAN. Addendum: 06/22/22 at 2335 by REGISTRY [facility] INPATIENT RN26 RN NURSING NOTE ENTERED BY PATRICK ZEE RN NURSING PRICK STITCHER.
[2022-06-23] MEDS: BLOOD SUGAR DIAGNOSTIC 1 EACH STRIP VI SCH
[2022-06-23] MEDS: DEXAMETHASONE SOD PHOSPHATE 4 MG INJ IV SCH
--- NOTE | 2022-06-23 01:00 | NUR ---
Reported expiration to attending medical providers: Ben Ponce N.P.
== END 2022-06-22 23:05 | DRG 177 ==
LOC: ER 20:02 → TELE-TD3 05-26 07:19 → TELE3 05-27 19:15 → TELE-TD3 06-11 09:10 → CCU 06-11 11:53
PROVIDERS: ADMIT Internal Medicine; ATTEND Nurse Practitioner Acute Care
PROC: 05H633Z Insertion of Infusion Device into Left Subclavian Vein, Percutaneous Approach (ICD-10-PCS; principal; 2022-06-08)
PROC: B547ZZA Ultrasonography of Left Subclavian Vein, Guidance (ICD-10-PCS; 2022-06-08)
PROC: 05H533Z Insertion of Infusion Device into Right Subclavian Vein, Percutaneous Approach (ICD-10-PCS; 2022-06-11)
PROC: B546ZZA Ultrasonography of Right Subclavian Vein, Guidance (ICD-10-PCS; 2022-06-11)
PROC: 06HM33Z Insertion of Infusion Device into Right Femoral Vein, Percutaneous Approach (ICD-10-PCS; 2022-06-13)
PROC: B54BZZA Ultrasonography of Right Lower Extremity Veins, Guidance (ICD-10-PCS; 2022-06-13)
PROC: 5A09557 Assistance with Respiratory Ventilation, Greater than 96 Consecutive Hours, Continuous Positive Airway Pressure (ICD-10-PCS; 2022-06-14)
DX: J69.0 Pneumonitis due to inhalation of food and vomit (principal); E43 Unspecified severe protein-calorie malnutrition; G92.8 Other toxic encephalopathy; J96.01 Acute respiratory failure with hypoxia; G93.6 Cerebral edema; C34.90 Malignant neoplasm of unspecified part of unspecified bronchus or lung; C79.31 Secondary malignant neoplasm of brain; D61.818 Other pancytopenia; D68.59 Other primary thrombophilia; J44.1 Chronic obstructive pulmonary disease with (acute) exacerbation; C34.12 Malignant neoplasm of upper lobe, left bronchus or lung; J15.9 Unspecified bacterial pneumonia; E78.5 Hyperlipidemia, unspecified; I25.10 Atherosclerotic heart disease of native coronary artery without angina pectoris; I25.2 Old myocardial infarction; Z20.822 Contact with and (suspected) exposure to COVID-19; Z79.899 Other long term (current) drug therapy; Z92.3 Personal history of irradiation; Z95.5 Presence of coronary angioplasty implant and graft; Z90.79 Acquired absence of other genital organ(s); Z87.891 Personal history of nicotine dependence; R13.10 Dysphagia, unspecified; J84.10 Pulmonary fibrosis, unspecified; I11.9 Hypertensive heart disease without heart failure; M19.90 Unspecified osteoarthritis, unspecified site; Z66 Do not resuscitate; I35.2 Nonrheumatic aortic (valve) stenosis with insufficiency; I73.9 Peripheral vascular disease, unspecified; R53.1 Weakness; Z95.820 Peripheral vascular angioplasty status with implants and grafts; E66.9 Obesity, unspecified; Z68.25 Body mass index [BMI] 25.0-25.9, adult; Z86.79 Personal history of other diseases of the circulatory system; R93.1 Abnormal findings on diagnostic imaging of heart and coronary circulation; D47.2 Monoclonal gammopathy; D50.9 Iron deficiency anemia, unspecified; D69.59 Other secondary thrombocytopenia; N40.0 Benign prostatic hyperplasia without lower urinary tract symptoms; R31.0 Gross hematuria
CPT/HCPCS: 36415; 36600; 70030-TC; 70450; 70470; 70553; 71045; 71275; 82378; 82747; 82784; 82803; 83550; 83605; 83735; 84100; 84132; 84155; 84165; 84443; 84484; 85014; 85025; 85730; 86038; 86140; 86334; 86430; 86480; 86706; 86803; 87040; 87340; 87400; 88185; 93005; 93307; 94640; 94660; 94664; 94760; 99082-TC; A4663; A6209; A6213; A9575; G0378; J1100; J1815; J1953; J2060; J2543; J2930; J3370; J3475; J3480; J3490; J3590; J7040; J7042; J7050; J7131; J8540; P9047; Q9967